=== PATIENT | female | born 1930 | race Caucasian/White ===

== ENCOUNTER 2016-12-21 06:44 | Inpatient (IN) | payer MEDICARE ==
[2016-12-21] MEDS ORDERED: ONDANSETRON HCL INJ/PF 4 MG/2 ML SDV IV ONE (07:18)
[2016-12-21] MEDS ORDERED: FENTANYL CITRATE INJ/PF 100 MCG/2 ML AMPUL IV ONE ×5 (07:18→16:32)
[2016-12-21] MEDS ORDERED: NORMAL SALINE 1000 ML 1,000 ML IV ONE (07:19)
--- NOTE | 2016-12-21 07:36 | ER Document Report ---
ED Fall - General Mode of Arrival: Medic Information source: Patient, Emergency Med Personnel TRAVEL OUTSIDE OF THE [place] IN LAST 30 DAYS: No - HPI Patient complains to provider of: Injury from Fall Occurred: This morning - [id number] Where: Group Home Context: Fell from standing Associated symptoms: denies: Lost consciousness Location of injury/pain: Back - Left lower, Hip - Left, Lower extremity - Left knee <REYES HURTADO - Last Filed: 12/21/16 07:42> <OSCAR HOOKS - Last Filed: 12/21/16 15:15> - General Chief Complaint: Fall Injury Stated Complaint: FALL,HIP/KNEE PAIN Notes: Patient is an 86-year-old female presenting to the emergency department via EMS from [facility] after falling sometime between [id number] last night. Per EMS, Patient was last seen at 0400, and states that she fell while closing the door to her room. Patient states that she was calling for help, but was not found until approximately 0600. Patient complains of pain to her left hip, lower back, and knee. Patient denies any loss of consciousness, but states that she may have hit her head on the wall or door. Patient also states , "I was calling for my mother who told me to 'hush, hush, hush, hush, it only makes it worser.'" According to patient's nurse, the patient vomited upon entering the bed in the emergency department. (REYES HURTADO) - Related data Allergies/Adverse Reactions: No Known Allergies Allergy (Unverified 12/24/15 14:48) Home Medications: Current Home Medications Acetaminophen [Tylenol 325 mg Tablet] 650 mg PO Q4HP PRN 12/21/16 [History] Aspirin/Dipyridamole [Aggrenox 25 mg-200 mg Capsule] 1 cap PO BID 12/21/16 [ History] Atorvastatin Calcium [Lipitor 80 mg Tablet] 80 mg PO DAILY 12/21/16 [History] Clonazepam [Klonopin] 0.5 mg PO BID 12/21/16 [History] Donepezil HCl [Aricept] 10 mg PO QHS 12/21/16 [History] Estrogens,Conjugated [Premarin Vaginal Cream (0.625 mg/gm) 30 gm] 1 gm VG DAILY 12/21/16 [History] Guaifenesin [Robitussin Syrup 200 mg/10 ml Ud Cup] 10 ml PO Q4HP PRN 12/21/16 [ History] Loperamide HCl [Imodium A-D] 2 mg PO PRN PRN 12/21/16 [History] Losartan Potassium [Cozaar 25 mg Tablet] 25 mg PO DAILY 12/21/16 [History] Memantine HCl [Namenda Xr] 28 mg PO DAILY 12/21/16 [History] Methyl Salicylate/Menth/Camph [Salonpas Patch] 2 patch TOP Q8 12/21/16 [History] Pregabalin [Lyrica 100 mg Capsule] 100 mg PO TID 12/21/16 [History] Past Medical History - General Information source: Patient, [facility] Records, Outside Facility Records - Social History Smoking Status: Never Smoker Frequency of alcohol use: None Drug Abuse: None Lives with: [facility] Family History: Reviewed & Not Pertinent Neurological Medical History: Reports: Hx Cerebrovascular Accident Endocrine Medical History: Reports: Hx Diabetes Mellitus Type 2 Musculoskeltal Medical History: Reports Hx Arthritis Past Surgical History: Reports: Hx Orthopedic Surgery - Cervical and lumbar surgery - Immunizations Immunizations up to date: Yes Hx Diphtheria, Pertussis, Tetanus Vaccination: Yes Hx Pneumococcal Vaccination: 04/23/14 <REYES HURTADO - Last Filed: 12/21/16 07:42> Review of Systems - Review of Systems Constitutional: No symptoms reported EENT: No symptoms reported Cardiovascular: No symptoms reported Respiratory: No symptoms reported Gastrointestinal: See HPI, Vomiting Genitourinary: No symptoms reported Female Genitourinary: No symptoms reported Musculoskeletal: See HPI, Other - Left lower back, hip, knee pain Skin: No symptoms reported Hematologic/Lymphatic: No symptoms reported Neurological/Psychological: No symptoms reported -: Yes All other systems reviewed and negative <REYES HURTADO - Last Filed: 12/21/16 07:42> Physical Exam - Vital signs Interpretation: Normal - General General appearance: Alert - HEENT Head: Normocephalic, Atraumatic Eyes: Normal Pupils: PERRL - Respiratory Respiratory status: No respiratory distress Chest status: Nontender Breath sounds: Normal Chest palpation: Normal - Cardiovascular Rhythm: Regular Heart sounds: Normal auscultation Murmur: No - Abdominal Inspection: Normal - Soft Distension: No distension Tenderness: Nontender - Back Back: Tender - Left lower backer up to palpation - Extremities General upper extremity: Normal inspection, Nontender General lower extremity: Other - Left leg shortened and externally rotated Hip: Tender - Left Knee: Tender - Left knee medial tenderness Calf: Other - Older, but recent skin tear to the anterior lower leg. - Neurological Neuro grossly intact: Yes Cognition: Other - Mild dementia Orientation: AAOx4 [place] Coma Scale Eye Opening: Spontaneous [place] Coma Scale Verbal: Oriented [place] Coma Scale Motor: Obeys Commands [place] Coma Scale Total: 15 Speech: Normal - Psychological Associated symptoms: Normal affect, Normal mood - Skin Skin Temperature: Warm Skin Moisture: Dry Skin Color: Other - See extremity exam <REYES HURTADO - Last Filed: 12/21/16 07:42> Course - Laboratory Result Diagrams: 12/21/16 07:45 12/21/16 07:45 - Diagnostic Test Radiology reviewed: Reports reviewed - Comminuted fracture left hip involving the lesser and greater trochanters. CT of the head shows a mass, I think I saw that same abnormality on MRI of the brain last year - EKG Interpretation by Ut EKG shows normal: Sinus rhythm, [place]. abnormal: Intervals - Borderline prolonged QT interval, QRS Complexes - Borderline R progression in anterior leads, ST-T Waves - Nonspecific T abnormalities in the lateral leads [place]/QRS: Left axis deviation When compared to previous EKG there are: No significant change - Consults Dr. Christensen Time consulted: 10:35 Consulted provider: will see as inpatient <OSCAR HOOKS - Last Filed: 12/21/16 15:15> - Vital Signs Vital signs: Temp Pulse Resp BP Pulse Ox 97.7 F 65 18 147/85 H 94 12/21/16 07:21 12/21/16 07:21 12/21/16 15:01 12/21/16 15:01 12/21/16 15:01 - Laboratory Laboratory results interpreted by me: 12/21/16 12/21/16 07:45 07:45 RBC 3.32 L Hgb 10.5 L Hct 31.5 L RDW 14.2 H Plt Count 138 L Sodium 146.6 H Chloride 111 H Est GFR (Non-Af Amer) 55 L Glucose 130 H Discharge <REYES HURTADO - Last Filed: 12/21/16 07:42> - Discharge Admitting Provider: [facility] Unit Admitted: Surgical Floor <OSCAR HOOKS - Last Filed: 12/21/16 15:15> - Discharge Clinical Impression: Hematuria Closed left hip fracture Qualifiers: Encounter type: initial encounter Qualified Code(s): S72.002A - Fracture of unspecified part of neck of left femur, initial encounter for closed fracture Dementia Qualifiers: Dementia type: unspecified type Dementia behavioral disturbance: without behavioral disturbance Qualified Code(s): F03.90 - Unspecified dementia without behavioral disturbance Condition: Stable Disposition: ADMITTED INPATIENT Scribe Attestation: 12/21/16 13:09 I personally performed the services described in the documentation, reviewed and edited the documentation which was dictated to the scribe in my presence, and it accurately records my words and actions. (OSCAR HOOKS) Scribe Documentation - Scribe Written by Scribe:: Reyes Hurtado 12/21/2016 0731 acting as scribe for :: Radha <REYES HURTADO - Last Filed: 12/21/16 07:42>
[2016-12-21 07:53] LABS: ABSOLUTE EOSINOPHILS # (AUTO) 0.3 10^3/uL (0.0-0.6); ABSOLUTE LYMPHOCYTES (AUTO) 1.8 10^3/uL (0.5-4.7); ABSOLUTE MONOCYTES (AUTO) 0.6 10^3/uL (0.1-1.4); BASOPHILS % (AUTO) 0.6 % (0-2); EOSINOPHILS % (AUTO) 4.5 % (0-6); HEMATOCRIT 31.5 % (36.0-47.0); HEMOGLOBIN 10.5 g/dL (12.0-15.5); LYMPHOCYTES % (AUTO) 26.2 % (13-45); MEAN CORPUSCULAR HEMOGLOBIN 31.6 pg (27.0-33.4); MEAN CORPUSCULAR HGB CONC 33.3 g/dL (32.0-36.0); MEAN CORPUSCULAR VOLUME 95 fl (80-97); MONOCYTES % (AUTO) 9.4 % (3-13); RED BLOOD COUNT 3.32 10^6/uL (3.72-5.28); RED CELL DISTRIBUTION WIDTH 14.2 % (11.5-14.0); SEGMENTED NEUTROPHILS % (AUTO) 59.3 % (42-78); WHITE BLOOD COUNT 6.7 10^3/uL (4.0-10.5)
--- NOTE | 2016-12-21 08:09 | EKG REPORT ---
SEVERITY:- ABNORMAL ECG - SINUS RHYTHM LEFT AXIS DEVIATION BORDERLINE R WAVE PROGRESSION, ANTERIOR LEADS NONSPECIFIC T ABNORMALITIES, LATERAL LEADS BORDERLINE PROLONGED QT INTERVAL : Confirmed by: Riki Allan MD 21-Dec-2016 08:08:54
[2016-12-21 08:17] LABS: ALANINE AMINOTRANSFERASE 43 U/L (9-52); ALBUMIN 3.7 g/dL (3.5-5.0); ALKALINE PHOSPHATASE 96 U/L (38-126); ANION GAP 10 (5-19); ASPARTATE AMINO TRANSFERASE 26 U/L (14-36); BILIRUBIN,DIRECT 0.3 mg/dL (0.0-0.4); BILIRUBIN,TOTAL 0.6 mg/dL (0.2-1.3); BLOOD UREA NITROGEN 19 mg/dL (7-20); CALCIUM 8.8 mg/dL (8.4-10.2); CARBON DIOXIDE 26 mmol/L (22-30); CHLORIDE 111 mmol/L (98-107); CREATINE KINASE 90 U/L (30-135); CREATININE RESULT 0.96 mg/dL (0.52-1.25); GLUCOSE 130 mg/dL (75-110); MAGNESIUM 1.9 mg/dL (1.6-2.3); POTASSIUM 4.2 mmol/L (3.6-5.0); SODIUM 146.6 mmol/L (137-145); TOTAL PROTEIN 6.9 g/dL (6.3-8.2)
[2016-12-21 08:29] LABS: CREATINE KINASE MB 0.95 ng/mL (<4.55)
[2016-12-21 08:34] LABS: TROPONIN I < 0.012 ng/mL
[2016-12-21 12:36] LABS: APPEARANCE,URINE SLIGHTLY-CLOUDY; BILIRUBIN,URINE NEGATIVE (NEGATIVE); GLUCOSE, URINE NEGATIVE (NEGATIVE); KETONES,URINE TRACE mg/dL (NEGATIVE); LEUKOCYTE ESTERASE,URINE NEGATIVE (NEGATIVE); NITRITE,URINE NEGATIVE (NEGATIVE); PROTEIN,URINE 100 mg/dL (NEGATIVE); URINE SPECIFIC GRAVITY 1.013; UROBILINOGEN,URINE NEGATIVE mg/dL (<2.0)
--- NOTE | 2016-12-21 17:29 | PDOC CONSULTATION ---
History of Present Illness Admission Date/PCP: 12/21/16 10:54 PATRICIA BOGGS MD History of Present Illness: VICTOR HUGO WHATLEY is a 86 year old female non-ambulatory halfway patient apparently sustained a fall earlier today when she attempted to ambulate. At that point she began having notable pain in her left hip. According to her family she has had frequent falls in the past but not complaining of pain until this morning. Pain is worse with motion. Patient denies numbness or tingling. Denies headache dizziness or loss of consciousness. Pain 10/10 with movement. Past Medical History Endocrine Medical History: Reports: Diabetes Mellitus Type 2 Musculoskeltal Medical History: Reports: Arthritis Past Surgical History Past Surgical History: Reports: Orthopedic Surgery - Cervical and lumbar surgery Social History Lives with: Long Term - [facility] Smoking Status: Never Smoker Frequency of Alcohol Use: None Hx Recreational Drug Use: No Drugs: None Hx Prescription Drug Abuse: No Family History Family History: Reviewed & Not Pertinent Parental Family History Reviewed: No Children Family History Reviewed: No Sibling(s) Family History Reviewed.: No Medication/Allergy Home Medications: Acetaminophen [Tylenol 325 mg Tablet] 650 mg PO Q4HP PRN 12/21/16 Aspirin/Dipyridamole [Aggrenox 25 mg-200 mg Capsule] 1 cap PO BID 12/21/16 Atorvastatin Calcium [Lipitor 80 mg Tablet] 80 mg PO DAILY 12/21/16 Clonazepam [Klonopin] 0.5 mg PO BID 12/21/16 Donepezil HCl [Aricept] 10 mg PO QHS 12/21/16 Estrogens,Conjugated [Premarin Vaginal Cream (0.625 mg/gm) 30 gm] 1 gm VG DAILY 12/21/16 Guaifenesin [Robitussin Syrup 200 mg/10 ml Ud Cup] 10 ml PO Q4HP PRN 12/21/16 Loperamide HCl [Imodium A-D] 2 mg PO PRN PRN 12/21/16 Losartan Potassium [Cozaar 25 mg Tablet] 25 mg PO DAILY 12/21/16 Memantine HCl [Namenda Xr] 28 mg PO DAILY 12/21/16 Methyl Salicylate/Menth/Camph [Salonpas Patch] 2 patch TOP Q8 12/21/16 Pregabalin [Lyrica 100 mg Capsule] 100 mg PO TID 12/21/16 Allergies/Adverse Reactions: No Known Allergies Allergy (Unverified 12/24/15 14:48) Review of Systems ROS unobtainable: Due to mental status Physical Exam Vital Signs: Temp Pulse Resp BP Pulse Ox 97.7 F 65 12 168/90 H 98 12/21/16 07:21 12/21/16 07:21 12/21/16 17:01 12/21/16 17:01 12/21/16 17:01 General appearance: PRESENT: mild distress Head exam: PRESENT: atraumatic Eye exam: PRESENT: conjunctiva pale, EOMI Ear exam: PRESENT: normal external ear exam Mouth exam: PRESENT: dry mucosa Neck exam: PRESENT: full ROM. ABSENT: carotid bruit, JVD, lymphadenopathy, thyromegaly Respiratory exam: PRESENT: unlabored Pulses: PRESENT: +1 pedal pulses bilateral Vascular exam: PRESENT: normal capillary refill GI/Abdominal exam: PRESENT: normal bowel sounds, soft Rectal exam: PRESENT: deferred Musculoskeletal exam: PRESENT: other - Left lower extremity: Shortened, externally rotated with positive logroll. Intact plantar flexion/dorsiflexion. Cap refill less than 2 seconds. No sensory deficits. Small 1 cm abrasion along the anterior aspect of the tibia without erythema. Notable pain with attempted range of motion of the hip. Neurological exam: PRESENT: altered, awake, oriented to person, other - Limited exam secondary to patient's mental status Psychiatric exam: PRESENT: flat affect Results Laboratory Results: 12/21/16 11:46 Urine Color YELLOW Urine Appearance SLIGHTLY-CLOUDY Urine pH 5.0 Ur Specific [place] 1.013 Urine Protein 100 H Urine Glucose (UA) NEGATIVE Urine Ketones TRACE H Urine Blood LARGE H Urine Nitrite NEGATIVE Ur Leukocyte Esterase NEGATIVE Urine WBC (Auto) 11 Urine RBC (Auto) 145 Impressions: Femur X-Ray 12/21/16 07:21 IMPRESSION: Comminuted fracture of the proximal left femur as noted above Lumbar Spine X-Ray 12/21/16 07:22 IMPRESSION: SPONDYLOSIS WITHOUT BONE LESION OR FRACTURE. Head CT 12/21/16 09:09 IMPRESSION: Question 1 cm mass left cerebellar hemisphere. No acute hemorrhage. Atrophy and marked microvascular ischemic change. Pelvis CT 12/21/16 10:35 IMPRESSION: Acute comminuted intertrochanteric left proximal femoral fracture. Status: Image reviewed by me - I have reviewed patient's radiographs and CT scan which demonstrate comminuted inter-trochanteric hip fracture. Assessment & Plan - Diagnosis (1) Fracture, intertrochanteric, left femur Qualifiers: Encounter type: initial encounter Fracture type: closed Qualified Code(s): S72.142A - Displaced intertrochanteric fracture of left femur , initial encounter for closed fracture Is this a current diagnosis for this admission?: YesPlan: I have reviewed patient's radiographs which demonstrate comminuted intratrochanteric fracture there is some portions of the fracture which may indicate chronicity but given the patient's history and having no discomfort prior to the most recent event I feel the majority of it is acute in nature. Today we discussed treatment options including observation which is reasonable given patient's not ambulatory demented status versus operative fixation for pain control. I have discussed risks and benefits of both including patient's increased anesthesia risks given her age along with the fact she is not ambulating that nonoperative treatment is certainly reasonable but operative treatment is somewhat prophylactic for pain control but will not completely resolve all patient's discomfort. After discussing risks and benefits of both operative and nonoperative intervention the family has verbalized understanding and will make final decision in the next 24 hours. In the meantime I will set the patient up for operative intervention with plans to proceed with cephalo- medullary nail.
[2016-12-21] MEDS: HYDROMORPHONE HCL INJ/PF 2 MG/ML AMPULE IV PRN (18:42)
[2016-12-21] MEDS ORDERED: ENOXAPARIN SODIUM INJ 40 MG/0.4 ML DISP.SYRIN SUBCUT ONE (19:00)
[2016-12-21 19:18] LABS: PARTIAL THROMBOPLASTIN TIME 29.3 SEC (23.5-35.8); PROTHROMBIN TIME 13.3 SEC (11.4-15.4)
[2016-12-21 19:23] LABS: LIPASE 53.3 U/L (23-300); MAGNESIUM 1.8 mg/dL (1.6-2.3); PHOSPHORUS 3.4 mg/dL (2.5-4.5)
[2016-12-21 19:47] LABS: CREATINE KINASE MB 1.2 ng/mL (<4.55); TROPONIN I 0.013 ng/mL
--- NOTE | 2016-12-21 19:54 | PDOC H&P ---
History of Present Illness Admission Date/PCP: 12/21/16 10:54 PATRICIA BOGGS MD History of Present Illness: Patient 86-year-old female with dementia, advanced, she is non-ambulatory, she is wheelchair-bound, resident of assisted living facility in [place] she fell earlier today while she was trying to ambulate, she came to the emergency room for evaluation because of pain x-ray was done he showed a comminuted fracture involving the proximal left femoral at the level of the greater and lesser trochanter with associated angulation. The family is contemplating between operative versus nonoperative option I suggested to them that she is better off to pursue operative option at least for pain control. Based on the revised cardiac risk index score, she has a history of CVA, she has no history of congestive heart failure, she has no history of coronary artery disease, she has no history of chronic kidney disease with serum creatinine more than 2, she has no history of insulin requiring diabetes mellitus and the anticipated procedure is intermediate risk based on the revised cardiac risk index score she is relative low risk for cardiac events in the perioperative. Orthopedic surgeon can proceed no further workup is warranted or indicated. Past Medical History Cardiac Medical History: Reports: Hypertension Neurological Medical History: Reports: Ischemic CVA Endocrine Medical History: Reports: Diabetes Mellitus Type 2 Musculoskeltal Medical History: Reports: Arthritis Psychiatric Medical History: Reports: Dementia Past Surgical History Past Surgical History: Reports: Orthopedic Surgery - Cervical and lumbar surgery Social History Lives with: Longterm - [facility] Smoking Status: Never Smoker Frequency of Alcohol Use: None Hx Recreational Drug Use: No Drugs: None Hx Prescription Drug Abuse: No Family History Family History: Reviewed & Not Pertinent Parental Family History Reviewed: Yes Children Family History Reviewed: Yes Sibling(s) Family History Reviewed.: Yes Medication/Allergy Home Medications: Acetaminophen [Tylenol 325 mg Tablet] 650 mg PO Q4HP PRN 12/21/16 Aspirin/Dipyridamole [Aggrenox 25 mg-200 mg Capsule] 1 cap PO BID 12/21/16 Atorvastatin Calcium [Lipitor 80 mg Tablet] 80 mg PO DAILY 12/21/16 Clonazepam [Klonopin] 0.5 mg PO BID 12/21/16 Donepezil HCl [Aricept] 10 mg PO QHS 12/21/16 Estrogens,Conjugated [Premarin Vaginal Cream (0.625 mg/gm) 30 gm] 1 gm VG DAILY 12/21/16 Guaifenesin [Robitussin Syrup 200 mg/10 ml Ud Cup] 10 ml PO Q4HP PRN 12/21/16 Loperamide HCl [Imodium A-D] 2 mg PO PRN PRN 12/21/16 Losartan Potassium [Cozaar 25 mg Tablet] 25 mg PO DAILY 12/21/16 Memantine HCl [Namenda Xr] 28 mg PO DAILY 12/21/16 Methyl Salicylate/Menth/Camph [Salonpas Patch] 2 patch TOP Q8 12/21/16 Pregabalin [Lyrica 100 mg Capsule] 100 mg PO TID 12/21/16 Allergies/Adverse Reactions: No Known Allergies Allergy (Unverified 12/24/15 14:48) Review of Systems Constitutional: ABSENT: chills, fever(s), headache(s), weight gain, weight loss Eyes: ABSENT: visual disturbances Ears: ABSENT: hearing changes Cardiovascular: ABSENT: chest pain, dyspnea on exertion, edema, orthropnea, palpitations Respiratory: ABSENT: cough, hemoptysis Gastrointestinal: ABSENT: abdominal pain, constipation, diarrhea, hematemesis, hematochezia, nausea, vomiting Genitourinary: ABSENT: dysuria, hematuria Musculoskeletal: PRESENT: back pain, deformity, joint swelling, muscle weakness Integumentary: ABSENT: rash, wounds Neurological: ABSENT: abnormal gait, abnormal speech, confusion, dizziness, focal weakness, syncope Psychiatric: ABSENT: anxiety, depression, homidical ideation, suicidal ideation Endocrine: ABSENT: cold intolerance, heat intolerance, menstrual abnormalities, polydipsia, polyuria Hematologic/Lymphatic: ABSENT: easy bleeding, easy bruising, lymphadenopathy Physical Exam Vital Signs: Temp Pulse Resp BP Pulse Ox 98 F 87 20 169/49 H 96 12/21/16 18:12 12/21/16 18:12 12/21/16 18:12 12/21/16 18:12 12/21/16 18:12 Intake & Output 12/20/16 12/21/16 12/22/16 06:59 06:59 06:59 Weight 71.7 kg General appearance: PRESENT: mild distress Head exam: PRESENT: atraumatic, normocephalic Eye exam: PRESENT: conjunctiva pink, EOMI, PERRLA Ear exam: PRESENT: normal external ear exam Neck exam: PRESENT: full ROM Respiratory exam: PRESENT: clear to auscultation [place] Cardiovascular exam: PRESENT: RRR, +S1, +S2 Vascular exam: PRESENT: normal capillary refill GI/Abdominal exam: PRESENT: normal bowel sounds, soft Rectal exam: PRESENT: deferred Neurological exam: PRESENT: alert, CN II-XII grossly intact. ABSENT: motor sensory deficit Results Laboratory Results: 12/21/16 12/21/16 12/21/16 11:46 18:35 18:35 Phosphorus 3.4 Magnesium 1.8 Ammonia < 8.7 L Amylase 47 Lipase 53.3 Urine Color YELLOW Urine Appearance SLIGHTLY-CLOUDY Urine pH 5.0 Ur Specific [place] 1.013 Urine Protein 100 H Urine Glucose (UA) NEGATIVE Urine Ketones TRACE H Urine Blood LARGE H Urine Nitrite NEGATIVE Ur Leukocyte Esterase NEGATIVE Urine WBC (Auto) 11 Urine RBC (Auto) 145 12/21/16 12/21/16 18:35 18:35 Creatine Kinase 134 NT-Pro-B Natriuret Pep 1670 H Impressions: Femur X-Ray 12/21/16 07:21 IMPRESSION: Comminuted fracture of the proximal left femur as noted above Lumbar Spine X-Ray 12/21/16 07:22 IMPRESSION: SPONDYLOSIS WITHOUT BONE LESION OR FRACTURE. Head CT 12/21/16 09:09 IMPRESSION: Question 1 cm mass left cerebellar hemisphere. No acute hemorrhage. Atrophy and marked microvascular ischemic change. Pelvis CT 12/21/16 10:35 IMPRESSION: Acute comminuted intertrochanteric left proximal femoral fracture. Assessment & Plan - Diagnosis (1) Fracture, intertrochanteric, left femur Qualifiers: Encounter type: initial encounter Fracture type: closed Qualified Code(s): S72.142A - Displaced intertrochanteric fracture of left femur , initial encounter for closed fracture Is this a current diagnosis for this admission?: YesPlan: Patient was seen by orthopedic, hopefully she will proceed to surgery as soon as family gives a greenlight. (2) Closed left hip fracture Qualifiers: Encounter type: initial encounter Qualified Code(s): S72.002A - Fracture of unspecified part of neck of left femur, initial encounter for closed fracture Is this a current diagnosis for this admission?: Yes (3) Dementia Qualifiers: Dementia type: unspecified type Dementia behavioral disturbance: without behavioral disturbance Qualified Code(s): F03.90 - Unspecified dementia without behavioral disturbance Is this a current diagnosis for this admission?: Yes (4) Spinal stenosis of lumbar region at multiple levels Is this a current diagnosis for this admission?: Yes (5) Personal history of stroke with current residual effects Is this a current diagnosis for this admission?: Yes (6) Preprocedural cardiovascular examination Is this a current diagnosis for this admission?: YesPlan: Based on the revised cardiac risk index score, she has one point because of history of CVA, this indicates that she has a low cardiovascular event in the perioperative., She can proceed to surgery.
[2016-12-21 20:01] LABS: THYROID STIMULATING HORMONE 2.32 uIU/mL (0.47-4.68)
[2016-12-22 01:03] LABS: CREATINE KINASE MB 0.97 ng/mL (<4.55); TROPONIN I 0.015 ng/mL
[2016-12-22] MEDS: HYDROMORPHONE HCL INJ/PF 2 MG/ML AMPULE IV PRN ×3 (01:37→23:00)
[2016-12-22 02:54] LABS: APPEARANCE,URINE SLIGHTLY-CLOUDY; BILIRUBIN,URINE NEGATIVE (NEGATIVE); GLUCOSE, URINE 50 mg/dL (NEGATIVE); KETONES,URINE NEGATIVE (NEGATIVE); LEUKOCYTE ESTERASE,URINE NEGATIVE (NEGATIVE); NITRITE,URINE NEGATIVE (NEGATIVE); PROTEIN,URINE 30 mg/dL (NEGATIVE); URINE SPECIFIC GRAVITY 1.019; UROBILINOGEN,URINE NEGATIVE mg/dL (<2.0)
[2016-12-22 03:07] LABS: URINE BARBITURATES SCREEN NEGATIVE; URINE METHADONE SCREEN NEGATIVE; URINE PHENCYCLIDINE SCREEN NEGATIVE
[2016-12-22 03:15] LABS: URINE OPIATES LOW UNCONFIRMED POSITIVE
[2016-12-22 06:39] LABS: ABSOLUTE EOSINOPHILS # (AUTO) 0.1 10^3/uL (0.0-0.6); ABSOLUTE LYMPHOCYTES (AUTO) 1.5 10^3/uL (0.5-4.7); ABSOLUTE MONOCYTES (AUTO) 0.8 10^3/uL (0.1-1.4); ABSOLUTE NEUT (AUTO) 2.8 10^3/uL (1.7-8.2); BASOPHILS % (AUTO) 0.5 % (0-2); EOSINOPHILS % (AUTO) 2.4 % (0-6); HEMATOCRIT 25.2 % (36.0-47.0); HGB HCT DIFFERENCE -0.3; LYMPHOCYTES % (AUTO) 28.5 % (13-45); MEAN CORPUSCULAR HEMOGLOBIN 31.5 pg (27.0-33.4); MEAN CORPUSCULAR HGB CONC 33.1 g/dL (32.0-36.0); MEAN CORPUSCULAR VOLUME 95 fl (80-97); MONOCYTES % (AUTO) 15.5 % (3-13); RED BLOOD COUNT 2.65 10^6/uL (3.72-5.28); SEGMENTED NEUTROPHILS % (AUTO) 53.1 % (42-78); WHITE BLOOD COUNT 5.3 10^3/uL (4.0-10.5)
[2016-12-22 06:43] LABS: HEMOGLOBIN 8.3 g/dL (12.0-15.5)
[2016-12-22 06:58] LABS: ALANINE AMINOTRANSFERASE 34 U/L (9-52); ALKALINE PHOSPHATASE 70 U/L (38-126); ANION GAP 9 (5-19); ASPARTATE AMINO TRANSFERASE 22 U/L (14-36); BILIRUBIN,DIRECT 0.1 mg/dL (0.0-0.4); BILIRUBIN,TOTAL 0.5 mg/dL (0.2-1.3); BLOOD UREA NITROGEN 13 mg/dL (7-20); CARBON DIOXIDE 24 mmol/L (22-30); CHLORIDE 110 mmol/L (98-107); CHOLESTEROL 119.26 mg/dL (0-200); CREATINE KINASE 127 U/L (30-135); Direct HDL 55 mg/dL (>40); GLUCOSE 136 mg/dL (75-110); POTASSIUM 4.2 mmol/L (3.6-5.0); SODIUM 143.2 mmol/L (137-145); TOTAL PROTEIN 5.7 g/dL (6.3-8.2); TRIGLYCERIDES 82 mg/dL (<150)
[2016-12-22 07:09] LABS: CREATINE KINASE MB 0.75 ng/mL (<4.55); DIRECT LDL 42 mg/dL (<100); TROPONIN I < 0.012 ng/mL
[2016-12-22] MEDS: ENOXAPARIN SODIUM INJ 40 MG/0.4 ML DISP.SYRIN SUBCUT SCH (07:40)
[2016-12-22] MEDS ORDERED: NORMAL SALINE 250 ML IV PRN (07:55)
[2016-12-22] MEDS ORDERED: PHENYLEPHRINE HCL INJ/PF 10 MG/1 ML SDV ONE (08:02)
[2016-12-22] MEDS: DEXTROSE 5%-NORMAL SALINE 1,000 ML IV PRN ×2 (08:12→23:04)
[2016-12-22] MEDS ORDERED: CEFAZOLIN INJ 1 GM VIAL ONE (14:43)
--- NOTE | 2016-12-22 15:15 | Progress Note ---
Provider Note Provider Note: After discussing and considering treatment options patient's family has elected to proceed with operative intervention and understands this is mainly for palliative pain control and expectations of ambulation are unlikely given patient's nonambulatory status. Patient received 2 units packed red blood cells prophylactically given her decreased hemoglobin today. Risks and benefits of the surgical procedure have been explained to the family risks anesthetic complications, excessive bleeding, infection, injury to surrounding nerves, vessels and tendons, bruising, healing difficulties, scar formation, posttraumatic arthritis and any unforseen complication.
[2016-12-22] MEDS ORDERED: FENTANYL CITRATE INJ/PF 100 MCG/2 ML AMPUL ONE (15:35)
[2016-12-22] MEDS ORDERED: MIDAZOLAM 2 MG/2 ML INJ ONE (15:35)
[2016-12-22] MEDS ORDERED: PROPOFOL INJ 200 MG/20 ML VIAL IV ONE (15:35)
[2016-12-22] MEDS ORDERED: ACETAMINOPHEN 100 ML IV ONE (15:36)
--- NOTE | 2016-12-22 18:05 | Operative Report ---
Operative Report DATE OF SURGERY: 12/22/16 PREOPERATIVE DIAGNOSIS: Left Intertrochanteric Hip Fracture POSTOPERATIVE DIAGNOSIS: Same OPERATION: Left Cephalomedullary Nail Intertrochanteric Fracture SURGEON: EVY LOYOLA ANESTHESIA: Spinal COMPLICATIONS: None ESTIMATED BLOOD LOSS: 200cc PROCEDURE: Indication for above procedure: 86-year-old female with history of dementia who lives at a nursing facility and sustained an unwitnessed fall onto her left hip. Patient was brought to the emergency room where x-rays demonstrated comminuted peritrochanteric fracture. Treatment options were explained to the family including operative versus nonoperative intervention. We discussed risks and benefits of each after careful consideration the family decided to proceed with operative treatment. Patient was seen and evaluated in the preoperative holding area. The right lower extremity was initialized and marked. Patient received 2 g Ancef IV for bacterial prophylaxis. Patient was taken back to the operative room where transferred operative table. Patient was placed under spinal anesthesia. Once adequate anesthetized he was carefully placed onto the hip positioner the nonoperative lower extremity and bilateral upper extremities were carefully padded and the peroneal nerve was padded and on the nonoperative extremity. The operative extremity was placed in a traction along with adduction and internal rotation. A surgical team debriefing was performed ensuring all instrumentation was available, the surgical procedure was discussed with possible concerns reviewed. A timeout was done identifying correct patient, procedure and extremity everyone in attendance agree with this and verbalized no concerns. Reduction maneuver with the use of the hip traction table were done and C-arm fluoroscopy was used to confirm optimal reduction of the intertrochanteric fracture. Once this was confirmed the lower extremity was prepped with chlor prep and draped in a sterile fashion. At this point a small skin incision was made proximal to the greater trochanter. The guidewire was placed onto the tip of the trochanter advanced down to the level of the lesser trochanter. AP and lateral fluoroscopy was used to confirm appropriate placement of the guidewire. The skin incision was then extended and the underlying fascia opened up carefully to the tip of the greater trochanter. The entry reamer was then used and advanced to the level of the lesser trochanter. Utilized a #1 to reduce the femoral neck. At this point Ramona short gamma nail was opened up unfortunately this became contaminated and a 130 degrees short nail was opened. The aiming arm attached and the nail advanced down the shaft of the femur. AP and lateral fluoroscopy was then used to confirm appropriate placement of the nail. Then turned my attention to the compression screw fixation in the femoral head. The trochars were advanced to the skin, a skin incision was made, careful dissection down to the fascia to the lateral femoral cortex was then partaken. The guidewire was then advanced but was unable to be placed in the appropriate position given the angle of the nail and comminuted fracture. Thus the decision was made to sterilize the previously contaminated titanium implant which was a 11 x 180 mm 125 short Gamma nail. Once sterilization process was complete the 125 gamma nail was passed into the femur. Acceptable reduction of the intertrochanteric fracture was confirmed with C-arm fluoroscopy. I then once again passed the trochars to the lateral aspect of the femur and the guidewire was placed. Attempts were made to obtain center center position but given patient's comminution and angle of the fracture perfect center center position was not obtainable. Once I was satisfied with the appropriate placement of the guidepin I measured the appropriate size compression screw. AP and lateral fluoroscopy used to confirm appropriate placement of our guide wire. The step reamer was used to drill up through the femoral neck and head. I then carefully advanced the compression screw into position. AP and lateral fluoroscopy was done to confirm appropriate placement of the compression screw this was then locked into position proximally. The compression screw was then disengaged from its mounting device and the guidewire was removed. Lastly proceeded with locking of the nail distally. Using the aiming arm the trochars were advanced to the skin, a skin incision was made. Careful dissection done with a hemostat to the lateral cortex of the femur. I then drilled the near and far cortices. Measured the appropriate sized distal locking screw and secured it into position. At this point AP/lateral and oblique views of the proximal and distal aspect of the nail were taken confirming appropriate placement of the compression screw, distal locking screw and intramedullary nail. Once this was confirmed I proceeded with copious irrigation of the proximal and distal wounds. The deep tissues were closed with 0 Vicryl suture, subcutaneous tissues were closed with 3-0 Monocryl suture. The skin was closed a running 3-0 subcuticular Monocryl suture and reinforced with Dermabond & Steri-Strips. A dressing was placed. Sponge counts, instrument counts and needle counts were correct. Patient was then transferred from the operating room table to the operating room stretcher. The was no intraoperative complications patient tolerated procedure well was stable to PACU. Implants used: Ramona 11 x 180 mm 125 Short Gamma Nail with a 95 mm compression screw Postoperative plan: Patient will transfers only given her nonambulatory status. We will begin heparin for DVT prophylaxis.
[2016-12-22] MEDS ORDERED: ALBUTEROL SULFATE 0.083% NEB 2.5 MG/3 ML AMPUL NEB ONE (18:25)
--- NOTE | 2016-12-22 20:40 | PDOC PROGRESS REPORT ---
Subjective Progress Note for:: 12/29/16 Subjective:: She had operative correction of the fracture today, there is no new complaint she will require shelter for rehabilitation Physical Exam Vital Signs: Temp Pulse Resp BP Pulse Ox 97.7 F 79 14 116/48 L 99 12/22/16 19:02 12/22/16 19:02 12/22/16 19:02 12/22/16 19:02 12/22/16 19:02 Intake & Output 12/21/16 12/22/16 12/23/16 06:59 06:59 06:59 Intake Total 6865 Output Total 600 450 Balance -600 6415 Weight 71.1 kg General appearance: PRESENT: no acute distress Eye exam: PRESENT: PERRLA Cardiovascular exam: PRESENT: +S1, +S2 GI/Abdominal exam: PRESENT: soft Neurological exam: PRESENT: alert Results Laboratory Results: 12/22/16 06:10 12/22/16 06:10 12/22/16 12/22/16 12/22/16 02:40 06:10 06:10 WBC 5.3 RBC 2.65 L Hgb 8.3 L D Hct 25.2 L MCV 95 MCH 31.5 MCHC 33.1 RDW 14.0 Plt Count 109 L Seg Neutrophils % 53.1 Lymphocytes % 28.5 Monocytes % 15.5 H Eosinophils % 2.4 Basophils % 0.5 Absolute Neutrophils 2.8 Absolute Lymphocytes 1.5 Absolute Monocytes 0.8 Absolute Eosinophils 0.1 Absolute Basophils 0.0 Sodium 143.2 Potassium 4.2 Chloride 110 H Carbon Dioxide 24 Anion Gap 9 BUN 13 Creatinine 0.90 Est GFR ( Amer) > 60 Est GFR (Non-Af Amer) > 60 Glucose 136 H Calcium 8.0 L Total Bilirubin 0.5 AST 22 ALT 34 Alkaline Phosphatase 70 Total Protein 5.7 L Albumin 3.0 L Triglycerides 82 Cholesterol 119.26 LDL Cholesterol Direct 42 VLDL Cholesterol 16.0 HDL Cholesterol 55 Urine Color YELLOW Urine Appearance SLIGHTLY-CLOUDY Urine pH 5.0 Ur Specific [place] 1.019 Urine Protein 30 H Urine Glucose (UA) 50 H Urine Ketones NEGATIVE Urine Blood SMALL H Urine Nitrite NEGATIVE Ur Leukocyte Esterase NEGATIVE Urine WBC (Auto) 17 Urine RBC (Auto) 4 Blood Type Antibody Screen 12/22/16 09:24 WBC RBC Hgb Hct MCV MCH MCHC RDW Plt Count Seg Neutrophils % Lymphocytes % Monocytes % Eosinophils % Basophils % Absolute Neutrophils Absolute Lymphocytes Absolute Monocytes Absolute Eosinophils Absolute Basophils Sodium Potassium Chloride Carbon Dioxide Anion Gap BUN Creatinine Est GFR ( Amer) Est GFR (Non-Af Amer) Glucose Calcium Total Bilirubin AST ALT Alkaline Phosphatase Total Protein Albumin Triglycerides Cholesterol LDL Cholesterol Direct VLDL Cholesterol HDL Cholesterol Urine Color Urine Appearance Urine pH Ur Specific [place] Urine Protein Urine Glucose (UA) Urine Ketones Urine Blood Urine Nitrite Ur Leukocyte Esterase Urine WBC (Auto) Urine RBC (Auto) Blood Type A NEGATIVE Antibody Screen NEGATIVE 12/21/16 12/21/16 12/21/16 18:35 18:35 18:35 Creatine Kinase 134 CK-MB (CK-2) 1.20 Troponin I 0.013 NT-Pro-B Natriuret Pep 1670 H 12/22/16 12/22/16 12/22/16 00:27 00:27 06:10 Creatine Kinase 135 127 CK-MB (CK-2) 0.97 Troponin I 0.015 NT-Pro-B Natriuret Pep 12/22/16 06:10 Creatine Kinase CK-MB (CK-2) 0.75 Troponin I < 0.012 NT-Pro-B Natriuret Pep Impressions: Femur X-Ray 12/21/16 07:21 IMPRESSION: Comminuted fracture of the proximal left femur as noted above Lumbar Spine X-Ray 12/21/16 07:22 IMPRESSION: SPONDYLOSIS WITHOUT BONE LESION OR FRACTURE. Head CT 12/21/16 09:09 IMPRESSION: Question 1 cm mass left cerebellar hemisphere. No acute hemorrhage. Atrophy and marked microvascular ischemic change. Pelvis CT 12/21/16 10:35 IMPRESSION: Acute comminuted intertrochanteric left proximal femoral fracture. Fluoroscopy 12/22/16 00:00 IMPRESSION: Please see combined report for performance of procedure and radiologic supervision and interpretation. Hip X-Ray 12/22/16 00:00 IMPRESSION: IMAGE(S) OBTAINED DURING PROCEDURE. Assessment & Plan - Diagnosis (1) Fracture, intertrochanteric, left femur Qualifiers: Encounter type: initial encounter Fracture type: closed Qualified Code(s): S72.142A - Displaced intertrochanteric fracture of left femur , initial encounter for closed fracture Is this a current diagnosis for this admission?: Yes (2) Closed left hip fracture Qualifiers: Encounter type: initial encounter Qualified Code(s): S72.002A - Fracture of unspecified part of neck of left femur, initial encounter for closed fracture Is this a current diagnosis for this admission?: Yes (3) Dementia Qualifiers: Dementia type: unspecified type Dementia behavioral disturbance: without behavioral disturbance Qualified Code(s): F03.90 - Unspecified dementia without behavioral disturbance Is this a current diagnosis for this admission?: Yes (4) Spinal stenosis of lumbar region at multiple levels Is this a current diagnosis for this admission?: Yes (5) Personal history of stroke with current residual effects Is this a current diagnosis for this admission?: Yes (6) Preprocedural cardiovascular examination Is this a current diagnosis for this admission?: Yes
[2016-12-23] MEDS: HYDROMORPHONE HCL INJ/PF 2 MG/ML AMPULE IV PRN ×4 (05:26→21:40)
[2016-12-23 07:04] LABS: ABSOLUTE EOSINOPHILS # (AUTO) 0.1 10^3/uL (0.0-0.6); ABSOLUTE MONOCYTES (AUTO) 0.8 10^3/uL (0.1-1.4); ABSOLUTE NEUT (AUTO) 4.1 10^3/uL (1.7-8.2); BASOPHILS % (AUTO) 0.5 % (0-2); EOSINOPHILS % (AUTO) 1.5 % (0-6); HEMATOCRIT 29.4 % (36.0-47.0); HEMOGLOBIN 10.1 g/dL (12.0-15.5); HGB HCT DIFFERENCE 0.9; LYMPHOCYTES % (AUTO) 16.7 % (13-45); MEAN CORPUSCULAR HEMOGLOBIN 31.6 pg (27.0-33.4); MEAN CORPUSCULAR HGB CONC 34.4 g/dL (32.0-36.0); MEAN CORPUSCULAR VOLUME 92 fl (80-97); MONOCYTES % (AUTO) 13.2 % (3-13); RED BLOOD COUNT 3.19 10^6/uL (3.72-5.28); RED CELL DISTRIBUTION WIDTH 15.2 % (11.5-14.0); SEGMENTED NEUTROPHILS % (AUTO) 68.1 % (42-78)
[2016-12-23] MEDS: ENOXAPARIN SODIUM INJ 40 MG/0.4 ML DISP.SYRIN SUBCUT SCH (10:48)
--- NOTE | 2016-12-23 16:10 | PDOC PROGRESS REPORT ---
Subjective Progress Note for:: 12/23/16 Subjective:: Patient had surgery yesterday, no new complaint Physical Exam Vital Signs: Temp Pulse Resp BP Pulse Ox 98.7 F 91 16 129/65 H 95 12/23/16 11:36 12/23/16 11:36 12/23/16 11:36 12/23/16 11:36 12/23/16 11:36 Intake & Output 12/22/16 12/23/16 12/24/16 06:59 06:59 06:59 Intake Total 7955 100 Output Total 600 750 230 Balance -600 7205 -130 Weight 71.1 kg 71.1 kg General appearance: PRESENT: no acute distress Eye exam: PRESENT: PERRLA Respiratory exam: PRESENT: clear to auscultation maximo Cardiovascular exam: PRESENT: +S1, +S2 Results Laboratory Results: 12/23/16 06:15 12/22/16 06:10 12/22/16 12/23/16 12/23/16 09:24 05:00 06:15 WBC Cancelled 6.0 RBC Cancelled 3.19 L Hgb Cancelled 10.1 L Hct Cancelled 29.4 L MCV Cancelled 92 MCH Cancelled 31.6 MCHC Cancelled 34.4 RDW Cancelled 15.2 H Plt Count Cancelled 93 L Seg Neutrophils % Cancelled 68.1 Lymphocytes % Cancelled 16.7 Monocytes % Cancelled 13.2 H Eosinophils % Cancelled 1.5 Basophils % Cancelled 0.5 Absolute Neutrophils Cancelled 4.1 Absolute Lymphocytes Cancelled 1.0 Absolute Monocytes Cancelled 0.8 Absolute Eosinophils Cancelled 0.1 Absolute Basophils Cancelled 0.0 Blood Type A NEGATIVE Antibody Screen NEGATIVE 12/21/16 12/21/16 12/21/16 18:35 18:35 18:35 Creatine Kinase 134 CK-MB (CK-2) 1.20 Troponin I 0.013 NT-Pro-B Natriuret Pep 1670 H 12/22/16 12/22/16 12/22/16 00:27 00:27 06:10 Creatine Kinase 135 127 CK-MB (CK-2) 0.97 Troponin I 0.015 NT-Pro-B Natriuret Pep 12/22/16 06:10 Creatine Kinase CK-MB (CK-2) 0.75 Troponin I < 0.012 NT-Pro-B Natriuret Pep Impressions: Femur X-Ray 12/21/16 07:21 IMPRESSION: Comminuted fracture of the proximal left femur as noted above Lumbar Spine X-Ray 12/21/16 07:22 IMPRESSION: SPONDYLOSIS WITHOUT BONE LESION OR FRACTURE. Head CT 12/21/16 09:09 IMPRESSION: Question 1 cm mass left cerebellar hemisphere. No acute hemorrhage. Atrophy and marked microvascular ischemic change. Pelvis CT 12/21/16 10:35 IMPRESSION: Acute comminuted intertrochanteric left proximal femoral fracture. Fluoroscopy 12/22/16 00:00 IMPRESSION: Please see combined report for performance of procedure and radiologic supervision and interpretation. Hip X-Ray 12/22/16 00:00 IMPRESSION: IMAGE(S) OBTAINED DURING PROCEDURE. Assessment & Plan - Diagnosis (1) Fracture, intertrochanteric, left femur Qualifiers: Encounter type: initial encounter Fracture type: closed Qualified Code(s): S72.142A - Displaced intertrochanteric fracture of left femur , initial encounter for closed fracture Is this a current diagnosis for this admission?: Yes (2) Closed left hip fracture Qualifiers: Encounter type: initial encounter Qualified Code(s): S72.002A - Fracture of unspecified part of neck of left femur, initial encounter for closed fracture Is this a current diagnosis for this admission?: Yes (3) Dementia Qualifiers: Dementia type: unspecified type Dementia behavioral disturbance: without behavioral disturbance Qualified Code(s): F03.90 - Unspecified dementia without behavioral disturbance Is this a current diagnosis for this admission?: Yes (4) Spinal stenosis of lumbar region at multiple levels Is this a current diagnosis for this admission?: Yes (5) Personal history of stroke with current residual effects Is this a current diagnosis for this admission?: Yes (6) Preprocedural cardiovascular examination Is this a current diagnosis for this admission?: Yes - Plan Summary Plan Summary: She will need to go to rehab at [place]
[2016-12-24] MEDS: DEXTROSE 5%-NORMAL SALINE 1,000 ML IV PRN (03:01)
[2016-12-24] MEDS: HYDROMORPHONE HCL INJ/PF 2 MG/ML AMPULE IV PRN ×4 (03:02→21:17)
[2016-12-24 06:28] LABS: ABSOLUTE EOSINOPHILS # (AUTO) 0.2 10^3/uL (0.0-0.6); ABSOLUTE LYMPHOCYTES (AUTO) 1.3 10^3/uL (0.5-4.7); ABSOLUTE MONOCYTES (AUTO) 0.9 10^3/uL (0.1-1.4); ABSOLUTE NEUT (AUTO) 4.2 10^3/uL (1.7-8.2); BASOPHILS % (AUTO) 0.4 % (0-2); EOSINOPHILS % (AUTO) 2.5 % (0-6); HEMATOCRIT 25.4 % (36.0-47.0); HEMOGLOBIN 8.8 g/dL (12.0-15.5); LYMPHOCYTES % (AUTO) 19.9 % (13-45); MEAN CORPUSCULAR HEMOGLOBIN 31.7 pg (27.0-33.4); MEAN CORPUSCULAR HGB CONC 34.5 g/dL (32.0-36.0); MEAN CORPUSCULAR VOLUME 92 fl (80-97); MONOCYTES % (AUTO) 14.3 % (3-13); RED BLOOD COUNT 2.76 10^6/uL (3.72-5.28); RED CELL DISTRIBUTION WIDTH 15.1 % (11.5-14.0); SEGMENTED NEUTROPHILS % (AUTO) 62.9 % (42-78); WHITE BLOOD COUNT 6.6 10^3/uL (4.0-10.5)
[2016-12-24] MEDS: ENOXAPARIN SODIUM INJ 40 MG/0.4 ML DISP.SYRIN SUBCUT SCH (09:39)
--- NOTE | 2016-12-24 15:06 | PDOC PROGRESS REPORT ---
Subjective Progress Note for:: 12/24/16 Subjective:: Patient is resting comfortably in bed. Sponge to her name. Unable to answer any further questions. Autonomy there was no issues overnight. Nurse also told me that the patient was at least set up to the bed but did not participate with physical therapy due to already being a nonambulator. Pain seems to be under control. Physical Exam Vital Signs: Temp Pulse Resp BP Pulse Ox 36.3 C 81 18 125/46 L 98 12/24/16 07:53 12/24/16 07:53 12/24/16 07:53 12/24/16 07:53 12/24/16 07:53 Intake & Output 12/23/16 12/24/16 12/25/16 06:59 06:59 06:59 Intake Total 7983 2914 Output Total 750 680 Balance 7205 2234 Weight 71.1 kg 72.1 kg Adult Front & Back Image: 1 - Dressing and incision are dry clean and intact. Tender to palpation. Response to stimuli distally. Able to extend and flex toes and ankle. Good capillary refill. Results Laboratory Results: 12/24/16 05:12/22/16 06:10 12/22/16 12/24/16 09:24 05:17 WBC 6.6 RBC 2.76 L Hgb 8.8 L Hct 25.4 L MCV 92 MCH 31.7 MCHC 34.5 RDW 15.1 H Plt Count 91 L Seg Neutrophils % 62.9 Lymphocytes % 19.9 Monocytes % 14.3 H Eosinophils % 2.5 Basophils % 0.4 Absolute Neutrophils 4.2 Absolute Lymphocytes 1.3 Absolute Monocytes 0.9 Absolute Eosinophils 0.2 Absolute Basophils 0.0 Blood Type A NEGATIVE Antibody Screen NEGATIVE 12/22/16 02:40 Michel Catheter Urine Culture - Final NO GROWTH 2 DAYS 12/21/16 12/21/16 12/21/16 18:35 18:35 18:35 Creatine Kinase 134 CK-MB (CK-2) 1.20 Troponin I 0.013 NT-Pro-B Natriuret Pep 1670 H 12/22/16 12/22/1617 00:27 00:27 06:10 Creatine Kinase 135 127 CK-MB (CK-2) 0.97 Troponin I 0.015 NT-Pro-B Natriuret Pep 12/22/16 06:10 Creatine Kinase CK-MB (CK-2) 0.75 Troponin I < 0.012 NT-Pro-B Natriuret Pep Impressions: Femur X-Ray 12/21/16 07:21 IMPRESSION: Comminuted fracture of the proximal left femur as noted above Lumbar Spine X-Ray 12/21/16 07:22 IMPRESSION: SPONDYLOSIS WITHOUT BONE LESION OR FRACTURE. Head CT 12/21/16 09:09 IMPRESSION: Question 1 cm mass left cerebellar hemisphere. No acute hemorrhage. Atrophy and marked microvascular ischemic change. Pelvis CT 12/21/16 10:35 IMPRESSION: Acute comminuted intertrochanteric left proximal femoral fracture. Fluoroscopy 12/22/16 00:00 IMPRESSION: Please see combined report for performance of procedure and radiologic supervision and interpretation. Hip X-Ray 12/22/16 00:00 IMPRESSION: IMAGE(S) OBTAINED DURING PROCEDURE. Assessment & Plan - Plan Summary Plan Summary: 86-year-old female postop day 1 from cephalo-medullary nailing of left intertrochanteric hip fracture. Patient with acute blood loss anemia. Need to monitor H&H and potentially give 2 units of PRBC if it drops any further. Continue pain control. Awaiting discharge planning to return to detention.
[2016-12-25] MEDS: HYDROMORPHONE HCL INJ/PF 2 MG/ML AMPULE IV PRN ×4 (06:06→23:44)
[2016-12-25] MEDS: ENOXAPARIN SODIUM INJ 40 MG/0.4 ML DISP.SYRIN SUBCUT SCH (07:49)
--- NOTE | 2016-12-25 18:53 | PDOC PROGRESS REPORT ---
Subjective Progress Note for:: 12/24/16 Subjective:: She had operative correction of the fracture today, there is no new complaint she will require jail [facility] Physical Exam Vital Signs: Temp Pulse Resp BP Pulse Ox 99.0 F 90 22 H 130/54 H 95 12/25/16 16:15 12/25/16 16:15 12/25/16 16:15 12/25/16 16:15 12/25/16 16:15 Intake & Output 12/24/16 12/25/16 12/26/16 06:59 06:59 06:59 Intake Total 2914 2251 1060 Output Total 680 900 400 Balance 2234 1351 660 Weight 72.1 kg 70.6 kg General appearance: PRESENT: no acute distress Eye exam: PRESENT: PERRLA Respiratory exam: PRESENT: clear to auscultation maximo Cardiovascular exam: PRESENT: +S1, +S2 Results Laboratory Results: 12/24/16 05:17 12/22/16 06:10 12/21/16 12/21/16 12/21/16 18:35 18:35 18:35 Creatine Kinase 134 CK-MB (CK-2) 1.20 Troponin I 0.013 NT-Pro-B Natriuret Pep 1670 H 12/22/16 12/22/16 12/22/16 00:27 00:27 06:10 Creatine Kinase 135 127 CK-MB (CK-2) 0.97 Troponin I 0.015 NT-Pro-B Natriuret Pep 12/22/16 06:10 Creatine Kinase CK-MB (CK-2) 0.75 Troponin I < 0.012 NT-Pro-B Natriuret Pep Impressions: Femur X-Ray 12/21/16 07:21 IMPRESSION: Comminuted fracture of the proximal left femur as noted above Lumbar Spine X-Ray 12/21/16 07:22 IMPRESSION: SPONDYLOSIS WITHOUT BONE LESION OR FRACTURE. Head CT 12/21/16 09:09 IMPRESSION: Question 1 cm mass left cerebellar hemisphere. No acute hemorrhage. Atrophy and marked microvascular ischemic change. Pelvis CT 12/21/16 10:35 IMPRESSION: Acute comminuted intertrochanteric left proximal femoral fracture. Fluoroscopy 12/22/16 00:00 IMPRESSION: Please see combined report for performance of procedure and radiologic supervision and interpretation. Hip X-Ray 12/22/16 00:00 IMPRESSION: IMAGE(S) OBTAINED DURING PROCEDURE. Assessment & Plan - Diagnosis (1) Fracture, intertrochanteric, left femur Qualifiers: Encounter type: initial encounter Fracture type: closed Qualified Code(s): S72.142A - Displaced intertrochanteric fracture of left femur , initial encounter for closed fracture Is this a current diagnosis for this admission?: Yes (2) Closed left hip fracture Qualifiers: Encounter type: initial encounter Qualified Code(s): S72.002A - Fracture of unspecified part of neck of left femur, initial encounter for closed fracture Is this a current diagnosis for this admission?: Yes (3) Dementia Qualifiers: Dementia type: unspecified type Dementia behavioral disturbance: without behavioral disturbance Qualified Code(s): F03.90 - Unspecified dementia without behavioral disturbance Is this a current diagnosis for this admission?: Yes (4) Spinal stenosis of lumbar region at multiple levels Is this a current diagnosis for this admission?: Yes (5) Personal history of stroke with current residual effects Is this a current diagnosis for this admission?: Yes (6) Preprocedural cardiovascular examination Is this a current diagnosis for this admission?: Yes
--- NOTE | 2016-12-25 18:54 | PDOC PROGRESS REPORT ---
Subjective Progress Note for:: 12/25/16 Subjective:: Patient admitted because of fracture hip, awaiting bed [facility] Physical Exam Vital Signs: Temp Pulse Resp BP Pulse Ox 99.0 F 90 22 H 130/54 H 95 12/25/16 16:15 12/25/16 16:15 12/25/16 16:15 12/25/16 16:15 12/25/16 16:15 Intake & Output 12/24/16 12/25/16 12/26/16 06:59 06:59 06:59 Intake Total 2914 2251 1060 Output Total 680 900 400 Balance 2234 1351 660 Weight 72.1 kg 70.6 kg General appearance: PRESENT: no acute distress Eye exam: PRESENT: PERRLA Respiratory exam: PRESENT: clear to auscultation maximo Cardiovascular exam: PRESENT: +S1, +S2 Results Laboratory Results: 12/24/16 05:17 12/22/16 06:10 12/21/16 12/21/16 12/21/16 18:35 18:35 18:35 Creatine Kinase 134 CK-MB (CK-2) 1.20 Troponin I 0.013 NT-Pro-B Natriuret Pep 1670 H 12/22/16 12/22/16 12/22/16 00:27 00:27 06:10 Creatine Kinase 135 127 CK-MB (CK-2) 0.97 Troponin I 0.015 NT-Pro-B Natriuret Pep 12/22/16 06:10 Creatine Kinase CK-MB (CK-2) 0.75 Troponin I < 0.012 NT-Pro-B Natriuret Pep Impressions: Femur X-Ray 12/21/16 07:21 IMPRESSION: Comminuted fracture of the proximal left femur as noted above Lumbar Spine X-Ray 12/21/16 07:22 IMPRESSION: SPONDYLOSIS WITHOUT BONE LESION OR FRACTURE. Head CT 12/21/16 09:09 IMPRESSION: Question 1 cm mass left cerebellar hemisphere. No acute hemorrhage. Atrophy and marked microvascular ischemic change. Pelvis CT 12/21/16 10:35 IMPRESSION: Acute comminuted intertrochanteric left proximal femoral fracture. Fluoroscopy 12/22/16 00:00 IMPRESSION: Please see combined report for performance of procedure and radiologic supervision and interpretation. Hip X-Ray 12/22/16 00:00 IMPRESSION: IMAGE(S) OBTAINED DURING PROCEDURE. Assessment & Plan - Diagnosis (1) Fracture, intertrochanteric, left femur Qualifiers: Encounter type: initial encounter Fracture type: closed Qualified Code(s): S72.142A - Displaced intertrochanteric fracture of left femur , initial encounter for closed fracture Is this a current diagnosis for this admission?: Yes (2) Closed left hip fracture Qualifiers: Encounter type: initial encounter Qualified Code(s): S72.002A - Fracture of unspecified part of neck of left femur, initial encounter for closed fracture Is this a current diagnosis for this admission?: Yes (3) Dementia Qualifiers: Dementia type: unspecified type Dementia behavioral disturbance: without behavioral disturbance Qualified Code(s): F03.90 - Unspecified dementia without behavioral disturbance Is this a current diagnosis for this admission?: Yes (4) Spinal stenosis of lumbar region at multiple levels Is this a current diagnosis for this admission?: Yes (5) Personal history of stroke with current residual effects Is this a current diagnosis for this admission?: Yes (6) Preprocedural cardiovascular examination Is this a current diagnosis for this admission?: Yes
[2016-12-25] MEDS: DEXTROSE 5%-NORMAL SALINE 1,000 ML IV PRN (22:12)
--- NOTE | 2016-12-25 22:31 | PDOC PROGRESS REPORT ---
Subjective Progress Note for:: 12/25/16 Subjective:: Patient seen on rounds today. No issues. Lying in bed comfortably. Physical Exam Vital Signs: Temp Pulse Resp BP Pulse Ox 98.5 F 102 H 20 115/54 L 92 12/25/16 19:30 12/25/16 19:30 12/25/16 19:30 12/25/16 19:30 12/25/16 19:30 Intake & Output 12/24/16 12/25/16 12/26/16 06:59 06:59 06:59 Intake Total 2914 2251 1060 Output Total 680 900 400 Balance 2234 1351 660 Weight 72.1 kg 70.6 kg Musculoskeletal exam: PRESENT: other - Left Hip: Dressing c/d/i. Intact PF/DF, No calf tenderness. No evidence of limb length inequality or malrotation. Results Laboratory Results: 12/24/16 05:17 12/22/16 06:10 12/21/16 12/21/16 12/21/16 18:35 18:35 18:35 Creatine Kinase 134 CK-MB (CK-2) 1.20 Troponin I 0.013 NT-Pro-B Natriuret Pep 1670 H 12/22/16 12/22/16 12/22/16 00:27 00:27 06:10 Creatine Kinase 135 127 CK-MB (CK-2) 0.97 Troponin I 0.015 NT-Pro-B Natriuret Pep 12/22/16 06:10 Creatine Kinase CK-MB (CK-2) 0.75 Troponin I < 0.012 NT-Pro-B Natriuret Pep Impressions: Femur X-Ray 12/21/16 07:21 IMPRESSION: Comminuted fracture of the proximal left femur as noted above Lumbar Spine X-Ray 12/21/16 07:22 IMPRESSION: SPONDYLOSIS WITHOUT BONE LESION OR FRACTURE. Head CT 12/21/16 09:09 IMPRESSION: Question 1 cm mass left cerebellar hemisphere. No acute hemorrhage. Atrophy and marked microvascular ischemic change. Pelvis CT 12/21/16 10:35 IMPRESSION: Acute comminuted intertrochanteric left proximal femoral fracture. Fluoroscopy 12/22/16 00:00 IMPRESSION: Please see combined report for performance of procedure and radiologic supervision and interpretation. Hip X-Ray 12/22/16 00:00 IMPRESSION: IMAGE(S) OBTAINED DURING PROCEDURE. Assessment & Plan - Diagnosis (1) Fracture, intertrochanteric, left femur Qualifiers: Encounter type: subsequent encounter Fracture type: closed Fracture healing: with routine healing Qualified Code(s): S72.142D - Displaced intertrochanteric fracture of left femur, subsequent encounter for closed fracture with routine healing Is this a current diagnosis for this admission?: YesPlan: s/p Cephalomedullary Nail Intertrochanteric Hip Fx 1. Pain control 2. Transfers only given patients non ambulatory pre op status and high fall risk 3. Lovenox 4. D/C Planning to SNF when bed available.
[2016-12-26] MEDS: HYDROMORPHONE HCL INJ/PF 2 MG/ML AMPULE IV PRN ×5 (03:47→23:29)
[2016-12-26] MEDS: ENOXAPARIN SODIUM INJ 40 MG/0.4 ML DISP.SYRIN SUBCUT SCH (07:54)
--- NOTE | 2016-12-26 07:54 | PDOC PROGRESS REPORT ---
Subjective Progress Note for:: 12/26/16 Subjective:: Patient without any complaints today Physical Exam Vital Signs: Temp Pulse Resp BP Pulse Ox 36.8 C 83 20 128/43 H 96 12/26/16 00:22 12/26/16 00:22 12/26/16 00:22 12/26/16 00:22 12/26/16 00:22 Intake & Output 12/25/16 12/26/16 12/27/16 06:59 06:59 06:59 Intake Total 2251 2100 Output Total 900 1100 Balance 1351 1000 Weight 70.6 kg 81.1 kg General appearance: PRESENT: no acute distress Head exam: PRESENT: normocephalic Respiratory exam: PRESENT: unlabored Pulses: PRESENT: +1 pedal pulses bilateral Vascular exam: PRESENT: normal capillary refill GI/Abdominal exam: PRESENT: soft Rectal exam: PRESENT: deferred Extremities exam: PRESENT: other - Left lower extremity dressings clean dry and intact. Results Laboratory Results: 12/24/16 05:12/22/16 06:10 12/21/16 12/21/16 12/21/16 18:35 18:35 18:35 Creatine Kinase 134 CK-MB (CK-2) 1.20 Troponin I 0.013 NT-Pro-B Natriuret Pep 1670 H 12/22/16 12/22/16 12/22/16 00:27 00:27 06:10 Creatine Kinase 135 127 CK-MB (CK-2) 0.97 Troponin I 0.015 NT-Pro-B Natriuret Pep 12/22/16 06:10 Creatine Kinase CK-MB (CK-2) 0.75 Troponin I < 0.012 NT-Pro-B Natriuret Pep Impressions: Femur X-Ray 12/21/16 07:21 IMPRESSION: Comminuted fracture of the proximal left femur as noted above Lumbar Spine X-Ray 12/21/16 07:22 IMPRESSION: SPONDYLOSIS WITHOUT BONE LESION OR FRACTURE. Head CT 12/21/16 09:09 IMPRESSION: Question 1 cm mass left cerebellar hemisphere. No acute hemorrhage. Atrophy and marked microvascular ischemic change. Pelvis CT 12/21/16 10:35 IMPRESSION: Acute comminuted intertrochanteric left proximal femoral fracture. Fluoroscopy 12/22/16 00:00 IMPRESSION: Please see combined report for performance of procedure and radiologic supervision and interpretation. Hip X-Ray 12/22/16 00:00 IMPRESSION: IMAGE(S) OBTAINED DURING PROCEDURE. Status: Imported from PACS Assessment & Plan - Diagnosis (1) Fracture, intertrochanteric, left femur Qualifiers: Encounter type: subsequent encounter Fracture type: closed Fracture healing: with routine healing Qualified Code(s): S72.142D - Displaced intertrochanteric fracture of left femur, subsequent encounter for closed fracture with routine healing Is this a current diagnosis for this admission?: YesPlan: Patient's an 86-year-old nonambulatory white female status post open reduction internal fixation of a left proximal femur fracture with an uneventful postoperative course.
--- NOTE | 2016-12-26 10:20 | PDOC PROGRESS REPORT ---
Subjective Progress Note for:: 12/26/16 Subjective:: At baseline dementia. s/p fall with left hip fracture ORIF procedure. awaiting SNF placement Physical Exam Vital Signs: Temp Pulse Resp BP Pulse Ox 97.9 F 89 18 133/58 H 94 12/26/16 08:01 12/26/16 08:01 12/26/16 08:01 12/26/16 08:01 12/26/16 08:01 Intake & Output 12/25/16 12/26/16 12/27/16 06:59 06:59 06:59 Intake Total 2251 2100 Output Total 900 1100 Balance 1351 1000 Weight 70.6 kg 81.1 kg General appearance: PRESENT: no acute distress, cooperative Head exam: PRESENT: atraumatic, normocephalic Mouth exam: PRESENT: moist Respiratory exam: PRESENT: clear to auscultation maximo, decreased breath sounds - at lung bases Cardiovascular exam: PRESENT: RRR. ABSENT: diastolic murmur, rubs, systolic murmur GI/Abdominal exam: PRESENT: normal bowel sounds, soft. ABSENT: distended, guarding, mass, organolmegaly, rebound, tenderness Extremities exam: PRESENT: pedal edema - left leg Musculoskeletal exam: PRESENT: deformity - related to arthitis involvmnt of most joints Neurological exam: PRESENT: awake - but baseline dementia Skin exam: PRESENT: dry, warm, other - operative site dressing satisfactory Results Laboratory Results: 12/24/16 05:17 12/22/16 06:10 12/21/16 12/21/16 12/21/16 18:35 18:35 18:35 Creatine Kinase 134 CK-MB (CK-2) 1.20 Troponin I 0.013 NT-Pro-B Natriuret Pep 1670 H 12/22/16 12/22/16 12/22/16 00:27 00:27 06:10 Creatine Kinase 135 127 CK-MB (CK-2) 0.97 Troponin I 0.015 NT-Pro-B Natriuret Pep 12/22/16 06:10 Creatine Kinase CK-MB (CK-2) 0.75 Troponin I < 0.012 NT-Pro-B Natriuret Pep Impressions: Femur X-Ray 12/21/16 07:21 IMPRESSION: Comminuted fracture of the proximal left femur as noted above Lumbar Spine X-Ray 12/21/16 07:22 IMPRESSION: SPONDYLOSIS WITHOUT BONE LESION OR FRACTURE. Head CT 12/21/16 09:09 IMPRESSION: Question 1 cm mass left cerebellar hemisphere. No acute hemorrhage. Atrophy and marked microvascular ischemic change. Pelvis CT 12/21/16 10:35 IMPRESSION: Acute comminuted intertrochanteric left proximal femoral fracture. Fluoroscopy 12/22/16 00:00 IMPRESSION: Please see combined report for performance of procedure and radiologic supervision and interpretation. Hip X-Ray 12/22/16 00:00 IMPRESSION: IMAGE(S) OBTAINED DURING PROCEDURE. Assessment & Plan - Diagnosis (1) Dementia Qualifiers: Dementia type: unspecified type Dementia behavioral disturbance: without behavioral disturbance Qualified Code(s): F03.90 - Unspecified dementia without behavioral disturbance Is this a current diagnosis for this admission?: YesPlan: Continue current medication management (2) Fracture, intertrochanteric, left femur Qualifiers: Encounter type: subsequent encounter Fracture type: closed Fracture healing: with routine healing Qualified Code(s): S72.142D - Displaced intertrochanteric fracture of left femur, subsequent encounter for closed fracture with routine healing Is this a current diagnosis for this admission?: YesPlan: Continue current medication management (3) Anemia due to blood loss, acute Is this a current diagnosis for this admission?: YesPlan: Continue current medication management - Time Time Spent with patient: 25-34 minutes Medications reviewed and adjusted accordingly: Yes Anticipated discharge: SNF Within: Other - Inpatient Certification Based on my medical assessment, after consideration of the patient's comorbidities, presenting symptoms, or acuity I expect that the services needed warrant INPATIENT care.: Yes I certify that my determination is in accordance with my understanding of Medicare's requirements for reasonable and necessary INPATIENT services [42 CFR 412.3e].: Yes Medical Necessity: Need Close Monitoring Due to Risk of Patient Decompensation, Need for Pain Control, Risk of Complication if Not Cared For in Hospital Post Hospital Care: D/C or Transfer Summary - Plan Summary Plan Summary: Obtain CBC with diff. Continue current medication management
[2016-12-26] MEDS: LORAZEPAM INJ 2 MG/1 ML VIAL IV PRN (16:48)
[2016-12-27] MEDS: LORAZEPAM INJ 2 MG/1 ML VIAL IV PRN ×2 (02:14→23:17)
[2016-12-27] MEDS: HYDROMORPHONE HCL INJ/PF 2 MG/ML AMPULE IV PRN ×5 (04:02→21:08)
[2016-12-27] MEDS: DEXTROSE 5%-NORMAL SALINE 1,000 ML IV PRN (06:50)
[2016-12-27] MEDS: ENOXAPARIN SODIUM INJ 40 MG/0.4 ML DISP.SYRIN SUBCUT SCH (09:00)
--- NOTE | 2016-12-27 11:35 | PDOC PROGRESS REPORT ---
Subjective Progress Note for:: 12/27/16 Subjective:: At baseline dementia. Patient's pain is fairly controlled on current medication management. She is s/p fall with left hip fracture and ORIF procedure. she is awaiting SNF placement. No reported fever or chills. Physical Exam Vital Signs: Temp Pulse Resp BP Pulse Ox 98.2 F 74 16 131/50 H 95 12/27/16 08:00 12/27/16 08:00 12/27/16 08:00 12/27/16 08:00 12/27/16 08:00 Intake & Output 12/26/16 12/27/16 12/28/16 06:59 06:59 06:59 Intake Total 2100 1940 Output Total 1100 1300 Balance 1000 640 Weight 81.1 kg 79.7 kg Physical Exam: General appearance: PRESENT: no acute distress, cooperative Head exam: PRESENT: atraumatic, normocephalic Mouth exam: PRESENT: moist Respiratory exam: PRESENT: clear to auscultation maximo, decreased breath sounds - at lung bases Cardiovascular exam: PRESENT: RRR. ABSENT: diastolic murmur, rubs, systolic murmur GI/Abdominal exam: PRESENT: normal bowel sounds, soft. ABSENT: distended, guarding, mass, organomegaly, rebound, tenderness Extremities exam: PRESENT: pedal edema - left leg Musculoskeletal exam: PRESENT: deformity - related to arthritis involvement of most joints Neurological exam: PRESENT: awake - but baseline dementia Skin exam: PRESENT: dry, warm, other - operative site dressing satisfactory Results Laboratory Results: 12/24/16 05:17 12/22/16 06:10 12/21/16 19:27 Blood Blood Culture - Final NO GROWTH IN 5 DAYS 12/21/16 18:35 Blood Blood Culture - Final NO GROWTH IN 5 DAYS 12/21/16 12/21/16 12/21/16 18:35 18:35 18:35 Creatine Kinase 134 CK-MB (CK-2) 1.20 Troponin I 0.013 NT-Pro-B Natriuret Pep 1670 H 12/22/16 12/22/16 12/22/16 00:27 00:27 06:10 Creatine Kinase 135 127 CK-MB (CK-2) 0.97 Troponin I 0.015 NT-Pro-B Natriuret Pep 12/22/16 06:10 Creatine Kinase CK-MB (CK-2) 0.75 Troponin I < 0.012 NT-Pro-B Natriuret Pep Impressions: Femur X-Ray 12/21/16 07:21 IMPRESSION: Comminuted fracture of the proximal left femur as noted above Lumbar Spine X-Ray 12/21/16 07:22 IMPRESSION: SPONDYLOSIS WITHOUT BONE LESION OR FRACTURE. Head CT 12/21/16 09:09 IMPRESSION: Question 1 cm mass left cerebellar hemisphere. No acute hemorrhage. Atrophy and marked microvascular ischemic change. Pelvis CT 12/21/16 10:35 IMPRESSION: Acute comminuted intertrochanteric left proximal femoral fracture. Fluoroscopy 12/22/16 00:00 IMPRESSION: Please see combined report for performance of procedure and radiologic supervision and interpretation. Hip X-Ray 12/22/16 00:00 IMPRESSION: IMAGE(S) OBTAINED DURING PROCEDURE. Assessment & Plan - Diagnosis (1) Dementia Qualifiers: Dementia type: unspecified type Dementia behavioral disturbance: without behavioral disturbance Qualified Code(s): F03.90 - Unspecified dementia without behavioral disturbance Is this a current diagnosis for this admission?: Yes (2) Fracture, intertrochanteric, left femur Qualifiers: Encounter type: subsequent encounter Fracture type: closed Fracture healing: with routine healing Qualified Code(s): S72.142D - Displaced intertrochanteric fracture of left femur, subsequent encounter for closed fracture with routine healing Is this a current diagnosis for this admission?: Yes (3) Anemia due to blood loss, acute Is this a current diagnosis for this admission?: Yes - Time Time Spent with patient: 25-34 minutes Anticipated discharge: SNF Within: Other - Inpatient Certification Medical Necessity: Need Close Monitoring Due to Risk of Patient Decompensation, Need for Pain Control, Risk of Complication if Not Cared For in Hospital Post Hospital Care: D/C or Transfer Summary - Plan Summary Plan Summary: See covering attending physician orders.
[2016-12-27] MEDS ORDERED: FUROSEMIDE INJ/PF 20 MG/2 ML SDV IV ONE (19:45)
[2016-12-27] MEDS ORDERED: BISACODYL 10 MG SUPP.RECT PR ONE (20:00)
[2016-12-28] MEDS: HYDROMORPHONE HCL INJ/PF 2 MG/ML AMPULE IV PRN ×4 (04:16→17:33)
[2016-12-28] MEDS: ENOXAPARIN SODIUM INJ 40 MG/0.4 ML DISP.SYRIN SUBCUT SCH (07:27)
--- NOTE | 2016-12-28 07:54 | PDOC PROGRESS REPORT ---
Subjective Progress Note for:: 12/28/16 Subjective:: Patient lying in bed comfortable. No issues overnight. Pain controlled. Physical Exam Vital Signs: Temp Pulse Resp BP Pulse Ox 98.3 F 81 15 111/60 93 12/27/16 23:46 12/27/16 23:46 12/27/16 23:46 12/27/16 23:46 12/27/16 23:46 Intake & Output 12/27/16 12/28/16 12/29/16 06:59 06:59 06:59 Intake Total 1940 2031 Output Total 1300 3400 Balance 640 -1369 Weight 79.7 kg 80.2 kg Musculoskeletal exam: PRESENT: other - Left hip: Dressing clean/dry/intact no erythema or drainage. Intact plantar flexion/dorsiflexion. No calf tenderness. Negative Homans. Results Laboratory Results: 12/24/16 05:17 12/22/16 06:10 12/21/16 12/21/16 12/21/16 18:35 18:35 18:35 Creatine Kinase 134 CK-MB (CK-2) 1.20 Troponin I 0.013 NT-Pro-B Natriuret Pep 1670 H 12/22/16 12/22/16 12/22/16 00:27 00:27 06:10 Creatine Kinase 135 127 CK-MB (CK-2) 0.97 Troponin I 0.015 NT-Pro-B Natriuret Pep 12/22/16 06:10 Creatine Kinase CK-MB (CK-2) 0.75 Troponin I < 0.012 NT-Pro-B Natriuret Pep Impressions: Femur X-Ray 12/21/16 07:21 IMPRESSION: Comminuted fracture of the proximal left femur as noted above Lumbar Spine X-Ray 12/21/16 07:22 IMPRESSION: SPONDYLOSIS WITHOUT BONE LESION OR FRACTURE. Head CT 12/21/16 09:09 IMPRESSION: Question 1 cm mass left cerebellar hemisphere. No acute hemorrhage. Atrophy and marked microvascular ischemic change. Pelvis CT 12/21/16 10:35 IMPRESSION: Acute comminuted intertrochanteric left proximal femoral fracture. Fluoroscopy 12/22/16 00:00 IMPRESSION: Please see combined report for performance of procedure and radiologic supervision and interpretation. Hip X-Ray 12/22/16 00:00 IMPRESSION: IMAGE(S) OBTAINED DURING PROCEDURE. Assessment & Plan - Diagnosis (1) Fracture, intertrochanteric, left femur Qualifiers: Encounter type: subsequent encounter Fracture type: closed Fracture healing: with routine healing Qualified Code(s): S72.142D - Displaced intertrochanteric fracture of left femur, subsequent encounter for closed fracture with routine healing Is this a current diagnosis for this admission?: YesPlan: #1 pain control #2 physical therapy transfers only given patient's previous not ambulatory status she is high risk for falls #3 Lovenox for DVT prophylaxis #4 discharge planning to [facility] when bed available
--- NOTE | 2016-12-28 19:05 | PDOC TRANSFER SUMMARY ---
General - Admit/Disc Date/PCP Admission Date/Primary Care Provider: 12/21/16 18:12 PATRICIA BOGGS MD Discharge Date: 12/29/16 - Discharge Diagnosis (1) Fracture, intertrochanteric, left femur Is this a current diagnosis for this admission?: Yes (2) Closed left hip fracture Is this a current diagnosis for this admission?: Yes (3) Dementia Is this a current diagnosis for this admission?: Yes (4) Spinal stenosis of lumbar region at multiple levels Is this a current diagnosis for this admission?: Yes (5) Personal history of stroke with current residual effects Is this a current diagnosis for this admission?: Yes (6) Preprocedural cardiovascular examination Is this a current diagnosis for this admission?: Yes - Additional Information Resuscitation Status: Full Code Discharge Diet: As Tolerated Discharge Activity: Activity As Tolerated Home Medications: Acetaminophen [Tylenol 325 mg Tablet] 650 mg PO Q4HP PRN 12/21/16 Aspirin/Dipyridamole [Aggrenox 25 mg-200 mg Capsule] 1 cap PO BID 12/21/16 Atorvastatin Calcium [Lipitor 80 mg Tablet] 80 mg PO DAILY 12/21/16 Clonazepam [Klonopin] 0.5 mg PO BID 12/21/16 Donepezil HCl [Aricept] 10 mg PO QHS 12/21/16 Estrogens,Conjugated [Premarin Vaginal Cream (0.625 mg/gm) 30 gm] 1 gm VG DAILY 12/21/16 Guaifenesin [Robitussin Syrup 200 mg/10 ml Ud Cup] 10 ml PO Q4HP PRN 12/21/16 Loperamide HCl [Imodium A-D] 2 mg PO PRN PRN 12/21/16 Losartan Potassium [Cozaar 25 mg Tablet] 25 mg PO DAILY 12/21/16 Memantine HCl [Namenda Xr] 28 mg PO DAILY 12/21/16 Methyl Salicylate/Menth/Camph [Salonpas Patch] 2 patch TOP Q8 12/21/16 Pregabalin [Lyrica 100 mg Capsule] 100 mg PO TID 12/21/16 Enoxaparin Sodium [Lovenox Inj 40 mg/0.4 ml Disp.syrin] 40 mg SUBCUT QAM #0 disp.syrin 12/28/16 History of Present Illness Admission Date/PCP: 12/21/16 18:12 PATRICIA BOGGS MD History of Present Illness: Patient 86-year-old female with dementia, advanced, she is non-ambulatory, she is wheelchair-bound, resident of assisted living facility in [place] she fell earlier today while she was trying to ambulate, she came to the emergency room for evaluation because of pain x-ray was done he showed a comminuted fracture involving the proximal left femoral at the level of the greater and lesser trochanter with associated angulation. The family is contemplating between operative versus nonoperative option I suggested to them that she is better off to pursue operative option at least for pain control. Based on the revised cardiac risk index score, she has a history of CVA, she has no history of congestive heart failure, she has no history of coronary artery disease, she has no history of chronic kidney disease with serum creatinine more than 2, she has no history of insulin requiring diabetes mellitus and the anticipated procedure is intermediate risk based on the revised cardiac risk index score she is relative low risk for cardiac events in the perioperative. Orthopedic surgeon can proceed no further workup is warranted or indicated. Hospital Course Hospital Course: Patient fell and sustained left intertrochanteric fracture. She was seen by orthopedic and she underwent left cephalo-medullary nail of intertrochanteric fracture this was done December 22, 2016. The plan for transfer to alf for rehabilitation. She came from assisted living facility, at [facility] in [facility]. Pain control was achieved with Dilaudid in the hospital. Physical Exam Vital Signs: Temp Pulse Resp BP Pulse Ox 98.8 F 84 16 109/57 L 94 12/28/16 16:00 12/28/16 16:00 12/28/16 16:00 12/28/16 16:00 12/28/16 18:15 Intake & Output 12/27/16 12/28/16 12/29/16 06:59 06:59 06:59 Intake Total 1940 2031 320 Output Total 1300 3400 450 Balance 640 -1369 -130 Weight 79.7 kg 80.2 kg General appearance: PRESENT: no acute distress Eye exam: PRESENT: PERRLA Respiratory exam: PRESENT: clear to auscultation maximo Cardiovascular exam: PRESENT: +S1, +S2 GI/Abdominal exam: PRESENT: soft Results Laboratory Results: 12/24/16 05:17 12/22/16 06:10 12/21/16 12/21/16 12/21/16 18:35 18:35 18:35 Creatine Kinase 134 CK-MB (CK-2) 1.20 Troponin I 0.013 NT-Pro-B Natriuret Pep 1670 H 12/22/16 12/22/16 12/22/16 00:27 00:27 06:10 Creatine Kinase 135 127 CK-MB (CK-2) 0.97 Troponin I 0.015 NT-Pro-B Natriuret Pep 12/22/16 06:10 Creatine Kinase CK-MB (CK-2) 0.75 Troponin I < 0.012 NT-Pro-B Natriuret Pep Impressions: Femur X-Ray 12/21/16 07:21 IMPRESSION: Comminuted fracture of the proximal left femur as noted above Lumbar Spine X-Ray 12/21/16 07:22 IMPRESSION: SPONDYLOSIS WITHOUT BONE LESION OR FRACTURE. Head CT 12/21/16 09:09 IMPRESSION: Question 1 cm mass left cerebellar hemisphere. No acute hemorrhage. Atrophy and marked microvascular ischemic change. Pelvis CT 12/21/16 10:35 IMPRESSION: Acute comminuted intertrochanteric left proximal femoral fracture. Fluoroscopy 12/22/16 00:00 IMPRESSION: Please see combined report for performance of procedure and radiologic supervision and interpretation. Hip X-Ray 12/22/16 00:00 IMPRESSION: IMAGE(S) OBTAINED DURING PROCEDURE.
[2016-12-28] MEDS ORDERED: GUAIFENESIN SYRP 200 MG/10 ML UDC PO PRN (19:20)
[2016-12-28] MEDS ORDERED: ACETAMINOPHEN 325 MG TABLET PO PRN (19:20)
[2016-12-28] MEDS ORDERED: (PENDING PHARMACY ID) (Loperamide Hcl [Imodium A-D] 2 MG) PO PRN (19:20)
[2016-12-28] MEDS ORDERED: (PENDING PHARMACY ID) (Clonazepam [Klonopin] 0.5 MG) PO SCH (19:30)
[2016-12-28] MEDS ORDERED: [UNRECOGNIZED DRUG - OTHER] TOP SCH (19:30)
[2016-12-28] MEDS ORDERED: (PENDING PHARMACY ID) (Memantine Hcl [Namenda Xr] 28 MG) PO SCH ×2 (19:30→21:00)
[2016-12-28] MEDS ORDERED: PREGABALIN 100 MG CAPSULE PO ONE (20:30)
[2016-12-28] MEDS ORDERED: ATORVASTATIN CALCIUM 80 MG TABLET PO ONE (21:00)
[2016-12-28] MEDS ORDERED: ASPIRIN/DIPYRIDAMOLE 25-200 MG 1 CAP.SR CPMP.12HR PO ONE (21:00)
[2016-12-28] MEDS ORDERED: LOSARTAN POTASSIUM 25 MG TABLET PO ONE (21:00)
[2016-12-28] MEDS: PREGABALIN 100 MG CAPSULE PO SCH (21:52)
[2016-12-28] MEDS: NA PHOS,M-B/NA PHOS,DI-BA (ADULT) 133 ML ENEMA PR SCH (21:53)
[2016-12-28] MEDS ORDERED: (PENDING PHARMACY ID) (Donepezil Hcl [Aricept] 10 MG) PO SCH (22:00)
[2016-12-28] MEDS ORDERED: ESTROGENS,CONJUGATED 0.625 MG/1 GM 30 GM TUBE VG SCH (22:00)
[2016-12-28] MEDS ORDERED: DONEPEZIL HCL 5 MG TABLET PO SCH (22:00)
[2016-12-29] MEDS: PREGABALIN 100 MG CAPSULE PO SCH ×2 (05:45→15:08)
[2016-12-29] MEDS ORDERED: CLONAZEPAM 1 MG TABLET PO SCH (10:00)
[2016-12-29] MEDS ORDERED: LOSARTAN POTASSIUM 25 MG TABLET PO SCH (10:00)
[2016-12-29] MEDS ORDERED: ATORVASTATIN CALCIUM 80 MG TABLET PO SCH (10:00)
[2016-12-29] MEDS ORDERED: ASPIRIN/DIPYRIDAMOLE 25-200 MG 1 CAP.SR CPMP.12HR PO SCH (10:00)
--- NOTE | 2016-12-29 13:01 | PDOC PROGRESS REPORT ---
Subjective Progress Note for:: 12/29/16 Subjective:: Patient lying in bed comfortably. No issues overnight. Patient at baseline mental status. Physical Exam Vital Signs: Temp Pulse Resp BP Pulse Ox 97.4 F 78 18 139/54 H 92 12/28/16 23:09 12/28/16 23:09 12/28/16 23:09 12/28/16 23:09 12/28/16 23:09 Intake & Output 12/28/16 12/29/16 12/30/16 06:59 06:59 06:59 Intake Total 2031 320 Output Total 3400 850 Balance -1369 -530 Weight 80.2 kg 80.2 kg Musculoskeletal exam: PRESENT: other - Left lower extremity: Dressing clean/dry/ intact. No erythema or drainage. No limb length inequality or malrotation. No calf tenderness. Negative Homans. Results Laboratory Results: 12/24/16 05:17 12/22/16 06:10 12/21/16 12/21/16 12/21/16 18:35 18:35 18:35 Creatine Kinase 134 CK-MB (CK-2) 1.20 Troponin I 0.013 NT-Pro-B Natriuret Pep 1670 H 12/22/16 12/22/16 12/22/16 00:27 00:27 06:10 Creatine Kinase 135 127 CK-MB (CK-2) 0.97 Troponin I 0.015 NT-Pro-B Natriuret Pep 12/22/16 06:10 Creatine Kinase CK-MB (CK-2) 0.75 Troponin I < 0.012 NT-Pro-B Natriuret Pep Impressions: Femur X-Ray 12/21/16 07:21 IMPRESSION: Comminuted fracture of the proximal left femur as noted above Lumbar Spine X-Ray 12/21/16 07:22 IMPRESSION: SPONDYLOSIS WITHOUT BONE LESION OR FRACTURE. Head CT 12/21/16 09:09 IMPRESSION: Question 1 cm mass left cerebellar hemisphere. No acute hemorrhage. Atrophy and marked microvascular ischemic change. Pelvis CT 12/21/16 10:35 IMPRESSION: Acute comminuted intertrochanteric left proximal femoral fracture. Fluoroscopy 12/22/16 00:00 IMPRESSION: Please see combined report for performance of procedure and radiologic supervision and interpretation. Hip X-Ray 12/22/16 00:00 IMPRESSION: IMAGE(S) OBTAINED DURING PROCEDURE. Assessment & Plan - Diagnosis (1) Fracture, intertrochanteric, left femur Qualifiers: Encounter type: subsequent encounter Fracture type: closed Fracture healing: with routine healing Qualified Code(s): S72.142D - Displaced intertrochanteric fracture of left femur, subsequent encounter for closed fracture with routine healing Is this a current diagnosis for this admission?: YesPlan: 1. nonweightbearing left lower extremity given patient's nonambulatory status and high risk for falls 2. Lovenox 3. Discharge planning to alf facility when bed available. Follow- up with me in 14 days.
[2016-12-29] MEDS: ENOXAPARIN SODIUM INJ 40 MG/0.4 ML DISP.SYRIN SUBCUT SCH (14:58)
[2016-12-29] MEDS: NA PHOS,M-B/NA PHOS,DI-BA (ADULT) 133 ML ENEMA PR SCH (15:08)
[2016-12-29 18:38] VITALS: BP 125/68
== END 2016-12-29 17:30 | DRG 481 ==
LOC: ER 06:44 → EH 10:54 → UNDOADMIN 10:54 → 4S 17:19 → EH 17:19 → 4S 18:12
PROVIDERS: ADMIT Internal Medicine; ATTEND Internal Medicine
PROC: 30233N1 Transfusion of Nonautologous Red Blood Cells into Peripheral Vein, Percutaneous Approach (ICD-10-PCS; 2016-12-22)
PROC: 0QS734Z Reposition Left Upper Femur with Internal Fixation Device, Percutaneous Approach (ICD-10-PCS; principal; 2016-12-22 14:30)
DX: S72.142A Displaced intertrochanteric fracture of left femur, initial encounter for closed fracture (principal); D62 Acute posthemorrhagic anemia; W19.XXXA Unspecified fall, initial encounter; Y92.89 Other specified places as the place of occurrence of the external cause; F03.90 Unspecified dementia, unspecified severity, without behavioral disturbance, psychotic disturbance, mood disturbance, and anxiety; M48.06 Spinal stenosis, lumbar region; Z66 Do not resuscitate; I69.30 Unspecified sequelae of cerebral infarction; E11.9 Type 2 diabetes mellitus without complications; M19.90 Unspecified osteoarthritis, unspecified site; Z99.3 Dependence on wheelchair; Z79.82 Long term (current) use of aspirin; Z79.899 Other long term (current) drug therapy; Z91.81 History of falling; Z75.1 Person awaiting admission to adequate facility elsewhere
CPT/HCPCS: 01230; 36415; 36430; 70450; 72110; 72192; 80053; 80061; 80307; 81001; 82140; 82150; 82550; 82553; 83036; 83690; 83735; 83880; 84100; 84439; 84443; 84484; 85025; 85610; 85730; 86850; 86900; 86901; 86920; 86922; 87040; 87086; 88305; 93005; 93010; 96374; 96375; 96376; 99285; C1713; G8978-GP; G8979-GP; G8980-GP; J0131; J0690; J1170; J1650; J1940; J2060; J2250; J2370; J2405; J2704; J3010; J3490; J7030; P9016

== ENCOUNTER 2017-01-16 13:07 | Emergency (ER) | payer MEDICARE ==
[2017-01-16] MEDS ORDERED: NORMAL SALINE 500 ML IV PRN (14:01)
--- NOTE | 2017-01-16 14:16 | ER Document Report ---
ED General - General Stated Complaint: ALTERED MENTAL STATUS Time Seen by Provider: 01/16/17 13:40 Mode of Arrival: Medic Information source: Patient, Emergency Med Personnel, Outside Facility Records Notes: This is an 86-year-old female with a history of dementia, nonambulatory, recent left hip fracture CVA. The patient is brought to the emergency room by EMS from [facility] for change in responsiveness. Staff reported that the patient is not responding as her normal self. TRAVEL OUTSIDE OF THE [place] IN LAST 30 DAYS: No - HPI Onset: This morning Onset/Duration: Gradual Quality of pain: No pain Severity: None Pain Level: Denies Associated symptoms: denies: Chills, Fever, Shortness of breath Exacerbated by: Denies Relieved by: Denies Similar symptoms previously: Yes Recently seen / treated by doctor: No - Related Data Allergies/Adverse Reactions: No Known Allergies Allergy (Verified 01/16/17 15:05) Past Medical History - General Information source: Patient - Social History Smoking Status: Never Smoker Cigarette use (# per day): No Chew tobacco use (# tins/day): No Frequency of alcohol use: None Drug Abuse: None Lives with: Skilled Nursing Family History: Reviewed & Not Pertinent Patient has suicidal ideation: No Patient has homicidal ideation: No - Past Medical History Cardiac Medical History: Reports: Hx Hypertension Pulmonary Medical History: Reports: None Neurological Medical History: Reports: Hx Cerebrovascular Accident Endocrine Medical History: Reports: Hx Diabetes Mellitus Type 2 Renal/ Medical History: Reports: Other - UTIs Malignancy Medical History: Reports: None GI Medical History: Reports: None Musculoskeltal Medical History: Reports Hx Arthritis Psychiatric Medical History: Reports: Hx Dementia Past Surgical History: Reports: Hx Orthopedic Surgery - Cervical and lumbar surgery - Immunizations Immunizations up to date: Yes Hx Diphtheria, Pertussis, Tetanus Vaccination: Yes Hx Pneumococcal Vaccination: 04/23/14 Review of Systems - Review of Systems Constitutional: denies: Chills, Fever EENT: No symptoms reported Cardiovascular: No symptoms reported Respiratory: No symptoms reported Gastrointestinal: No symptoms reported Genitourinary: No symptoms reported Female Genitourinary: No symptoms reported Musculoskeletal: No symptoms reported Skin: No symptoms reported Hematologic/Lymphatic: No symptoms reported Neurological/Psychological: See HPI Physical Exam - Vital signs Vitals: Resp Pulse Ox 15 96 01/16/17 13:28 01/16/17 13:28 Notes: Physical exam: GENERAL: This is an 86-year-old female who is lying in the stretcher, she does have baseline dementia, she does not appear in any distress, she does appear dehydrated. Temperature 98. Rectally6 HEAD: Atraumatic, normocephalic. EYES: Pupils equal round and reactive to light, extraocular movements intact, sclera anicteric, conjunctiva are normal. ENT: TMs normal, nares patent, oropharynx clear without exudates. Dry mucous membranes. NECK: Normal range of motion, supple without lymphadenopathy or JVD. LUNGS: Breath sounds clear to auscultation bilaterally and equal. No wheezes rales or rhonchi. HEART: Regular rate and rhythm without murmurs, rubs or gallops. ABDOMEN: Soft, normoactive bowel sounds. No tenderness to palpation. No guarding, no rebound. No masses appreciated. Rectal: Brown stool, sent for study EXTREMITIES: Normal range of motion, no pitting or edema. No clubbing or cyanosis. NEUROLOGICAL: Cranial nerves II through XII grossly intact. Normal speech, baseline dementia PSYCH: Normal mood, normal affect. SKIN: Warm, Dry, normal turgor, no rashes or lesions noted. Course - Re-evaluation Re-evalutation: 01/16/17 18:42 I spoke to the patient's son states that the patient has had similar episodes in the past which were attributed to UTI. Dr. Boggs was in the ER and had seen the patient earlier. I did discuss the case with him. I have given the patient IV antibiotic while in the ER and I will discharge the patient with an antibiotic for UTI. The patient on repeat exam, is in no distress and is not having any pain. She does have dementia at baseline. Her BUN and creatinine were mildly elevated and she was given some IV fluids in the ER. I spoke to the patient's son about the plan to discharge back to the long term in he is happy with that decision. - Vital Signs Vital signs: Temp Pulse Resp BP Pulse Ox 12 153/74 H 97 01/16/17 17:17 01/16/17 16:01 01/16/17 15:01 - Laboratory Result Diagrams: 01/16/17 15:28 01/16/17 16:39 Laboratory results interpreted by me: 01/16/17 01/16/1701/16/17 15:28 15:28 16:39 RBC 3.42 L Hgb 10.5 L Hct 32.4 L Potassium 5.2 H BUN 29 H Est GFR ( Amer) 59 L Est GFR (Non-Af Amer) 49 L Direct Bilirubin 0.5 H Alkaline Phosphatase 155 H Urine Protein 30 H Urine Blood SMALL H - Diagnostic Test Radiology reviewed: Image reviewed, Reports reviewed - CT shows nothing acute. Chest x-ray is without infiltrates. Pelvis x-ray shows stable hardware in the left hip. Discharge - Discharge Clinical Impression: Altered mental status, UTI Condition: Stable Disposition: HOME, SELF-CARE Additional Instructions: Recommendations: Continue current medicines. Start Cipro tomorrow. Patient was given IV ceftriaxone in the ER. Return to the ER for any concerns that Ms. Mckinley is getting worse. Prescriptions: Ciprofloxacin HCl [Cipro 500 mg Tablet] 500 mg PO BID #20 tablet Referrals: PATRICIA BOGGS MD [Primary Care Provider] - Follow up as needed
[2017-01-16 16:05] LABS: APPEARANCE,URINE SLIGHTLY-CLOUDY; BILIRUBIN,URINE NEGATIVE (NEGATIVE); GLUCOSE, URINE NEGATIVE (NEGATIVE); KETONES,URINE NEGATIVE (NEGATIVE); LEUKOCYTE ESTERASE,URINE NEGATIVE (NEGATIVE); NITRITE,URINE NEGATIVE (NEGATIVE); PROTEIN,URINE 30 mg/dL (NEGATIVE); URINE SPECIFIC GRAVITY 1.014; UROBILINOGEN,URINE NEGATIVE mg/dL (<2.0)
[2017-01-16 16:13] LABS: HEMATOCRIT 32.4 % (36.0-47.0); HEMOGLOBIN 10.5 g/dL (12.0-15.5); HGB HCT DIFFERENCE -0.9; MEAN CORPUSCULAR HEMOGLOBIN 30.7 pg (27.0-33.4); MEAN CORPUSCULAR HGB CONC 32.4 g/dL (32.0-36.0); MEAN CORPUSCULAR VOLUME 95 fl (80-97); RED BLOOD COUNT 3.42 10^6/uL (3.72-5.28)
[2017-01-16 16:26] LABS: BASOPHILS % (MANUAL) 1 % (0-2); EOSINOPHILS % (MANUAL) 3 % (0-6); LYMPHOCYTES % (MANUAL) 24 % (13-45); TOTAL CELLS COUNTED 100
[2017-01-16 16:28] LABS: RBC MORPHOLOGY COMMENT NORMO-CYTIC/CHROMIC
[2017-01-16 17:13] LABS: ALANINE AMINOTRANSFERASE 43 U/L (9-52); ALBUMIN 3.8 g/dL (3.5-5.0); ALKALINE PHOSPHATASE 155 U/L (38-126); ANION GAP 14 (5-19); ASPARTATE AMINO TRANSFERASE 29 U/L (14-36); BILIRUBIN,DIRECT 0.5 mg/dL (0.0-0.4); BILIRUBIN,TOTAL 0.8 mg/dL (0.2-1.3); BLOOD UREA NITROGEN 29 mg/dL (7-20); CALCIUM 9.5 mg/dL (8.4-10.2); CARBON DIOXIDE 23 mmol/L (22-30); CHLORIDE 106 mmol/L (98-107); CREATININE RESULT 1.07 mg/dL (0.52-1.25); GLUCOSE 92 mg/dL (75-110); POTASSIUM 5.2 mmol/L (3.6-5.0); SODIUM 143.4 mmol/L (137-145); TOTAL PROTEIN 7.6 g/dL (6.3-8.2)
--- NOTE | 2017-01-16 17:29 | RADIOLOGY REPORT (SQ) ---
EXAM DESCRIPTION: CHEST SINGLE VIEW COMPLETED DATE/TIME: 01/16/2017 5:13 pm REASON FOR STUDY: altered mental status COMPARISON: 12/24/2015 EXAM PARAMETERS: NUMBER OF VIEWS: One view. TECHNIQUE: Single frontal radiographic view of the chest acquired. RADIATION DOSE: NA LIMITATIONS: None. FINDINGS: LUNGS AND PLEURA: No opacities, masses or pneumothorax. No pleural effusion. MEDIASTINUM AND HILAR STRUCTURES: No masses. Contour normal. HEART AND VASCULAR STRUCTURES: Heart normal in size. Normal vasculature. BONES: No acute findings. HARDWARE: None in the chest. OTHER: No other significant finding. IMPRESSION: NO ACUTE RADIOGRAPHIC FINDING IN THE CHEST. TECHNICAL DOCUMENTATION: JOB ID: [id number]
--- NOTE | 2017-01-16 17:30 | RADIOLOGY REPORT (SQ) ---
EXAM DESCRIPTION: CT HEAD WITHOUT COMPLETED DATE/TIME: 01/16/2017 5:16 pm REASON FOR STUDY: altered mental status COMPARISON: 12/21/2016 TECHNIQUE: Axial images acquired through the brain without intravenous contrast. Images reviewed wi th bone, brain and subdural windows. Images stored on PACS. All CT scanners at this facility use dose modulation, iterative reconstruction, and/or weight based d osing when appropriate to reduce radiation dose to as low as reasonably achievable (ALARA). [facility]: Dose Right [facility]: CareDose [facility]: Dose Right [facility]: Teradose 4D [facility]: [employer] RADIATION DOSE: 64.61 mGy. LIMITATIONS: None. FINDINGS: VENTRICLES: Prominent. CEREBRUM: No masses. No hemorrhage. No midline shift. Areas of low density in the white matter mos t likely due to chronic micro-vascular ischemic change. No evidence for acute infarction. 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 No hemorrhage. No alteration of density. No evidence for acute infarction. EXTRAAXIAL SPACES: Mild age-related involutional change. No fluid collections. No masses. ORBITS AND GLOBE: No intra- or extraconal masses. Normal contour of globe without masses. CALVARIUM: No fracture. PARANASAL SINUSES: No fluid or mucosal thickening. SOFT TISSUES: No mass or hematoma. OTHER: No other significant finding. IMPRESSION: No significant interval change from the previous study. CHRONIC CHANGES OF ATROPHY AND MICROVASCULAR ISCHEMIA. The previously questioned 1 cm mass in the left cerebellar hemisphere is aga in identified and appears unchanged. NO ACUTE PROCESS. TECHNICAL DOCUMENTATION: JOB ID: [id number] Quality ID # [id number]: Final reports with documentation of one or more dose reduction techniques (e.g., Au tomated exposure control, adjustment of the mA and/or kV according to patient size, use of iterative reconstruction technique) 2010 [employer]- All Rights Reserved
--- NOTE | 2017-01-16 17:31 | RADIOLOGY REPORT (SQ) ---
EXAM DESCRIPTION: HIP LEFT AP/LATERAL COMPLETED DATE/TIME: 01/16/2017 5:13 pm REASON FOR STUDY: altered COMPARISON: Intraoperative films dated 12/22/2016, CT pelvis dated 12/21/2016. NUMBER OF VIEWS: Two views. TECHNIQUE: AP pelvis and additional frog-leg view of the left hip. LIMITATIONS: None. FINDINGS: MINERALIZATION: Normal. LEFT HIP: There is a comminuted fracture of the proximal left femur. Internal fixation device is in place. I can't see no significant change in alignment from the intraoperative films. RIGHT HIP: Intact. PUBIS AND ISCHIUM: No fracture. PELVIS: No fracture. SACRUM: No fracture or dislocation. No worrisome bone lesions. LOWER LUMBAR SPINE: No fracture or dislocation. No worrisome bone lesions. No significant disc disea se. SOFT TISSUES: No findings. OTHER: No other significant finding. IMPRESSION: Postsurgical changes in the left hip. No evidence of an acute fracture or dislocation. TECHNICAL DOCUMENTATION: JOB ID: [id number] [employer]- All Rights Reserved
[2017-01-16] MEDS ORDERED: CEFTRIAXONE 1 GM/D5W RTU 50 ML IV ONE (18:19)
[2017-01-16 21:26] VITALS: BP 123/90
== END 2017-01-16 21:05 | disposition home or self-care (01) ==
LOC: ER 13:07
DX: R41.82 Altered mental status, unspecified (principal); N39.0 Urinary tract infection, site not specified; F03.90 Unspecified dementia, unspecified severity, without behavioral disturbance, psychotic disturbance, mood disturbance, and anxiety; I10 Essential (primary) hypertension; Z86.73 Personal history of transient ischemic attack (TIA), and cerebral infarction without residual deficits; Z87.440 Personal history of urinary (tract) infections
CPT/HCPCS: 99285; 96361; 96365; 36415; 85025; 85610; 82272; 80053; 81001; 71010; 73502; 70450; J7040; J0696

== ENCOUNTER 2017-01-22 15:53 | Inpatient (IN) | payer MEDICARE ==
--- NOTE | 2017-01-22 16:09 | ER Document Report ---
ED General - General Stated Complaint: BLOOD PRESSURE ISSUES Time Seen by Provider: 01/22/17 16:03 Mode of Arrival: Medic Information source: Emergency Med Personnel, Outside Facility Records TRAVEL OUTSIDE OF THE [place] IN LAST 30 DAYS: No - HPI Patient complains to provider of: hypotension, decreased responsiveness Onset: This morning Onset/Duration: Gradual Quality of pain: No pain Associated symptoms: Weakness Similar symptoms previously: Yes Recently seen / treated by doctor: No Notes: Patient is an 86-year-old female who [facility] responsiveness and hypotension noted today, she is afebrile, has no complaints at the present time but appears quite lethargic - Related Data Allergies/Adverse Reactions: aspirin Allergy (Verified 01/22/17 16:42) Penicillins Allergy (Verified 01/22/17 16:42) Past Medical History - General Information source: Outside Facility Records - Social History Smoking Status: Never Smoker Family History: Reviewed & Not Pertinent - Past Medical History Cardiac Medical History: Reports: Hx Hypertension Neurological Medical History: Reports: Hx Cerebrovascular Accident Endocrine Medical History: Reports: Hx Diabetes Mellitus Type 2 Musculoskeltal Medical History: Reports Hx Arthritis Psychiatric Medical History: Reports: Hx Dementia Past Surgical History: Reports: Hx Orthopedic Surgery - Cervical and lumbar surgery - Immunizations Immunizations up to date: Yes Hx Diphtheria, Pertussis, Tetanus Vaccination: Yes Hx Pneumococcal Vaccination: 04/23/14 Review of Systems - Review of Systems -: Yes ROS unobtainable due to patient's medical condition Physical Exam - Vital signs Vitals: Resp 12 01/22/17 15:57 Interpretation: Hypotensive - General General appearance: Lethargic In distress: Moderate - HEENT Head: Normocephalic, Atraumatic Eyes: Normal Conjunctiva: Normal Extraocular movements intact: Yes Eyelashes: Normal Pupils: PERRL Mucous membranes: Dry Pharynx: Normal Neck: Normal - Respiratory Respiratory status: No respiratory distress Chest status: Nontender Breath sounds: Normal Chest palpation: Normal - Cardiovascular Rhythm: Regular Heart sounds: Normal auscultation Murmur: No - Abdominal Distension: Distended Tenderness: Tender - Back Back: Normal - Extremities General upper extremity: Normal inspection General lower extremity: Other - Contracted - Neurological [place] Coma Scale Eye Opening: To Voice [place] Coma Scale Verbal: Confused [place] Coma Scale Motor: Obeys Commands [place] Coma Scale Total: 13 - Skin Skin Temperature: Cool Skin Moisture: Dry Skin Color: Pale Course - Re-evaluation Re-evalutation: 01/22/17 17:01 It noted to have urinary tract infection, as well as acute renal failure, likely from dehydration, we will continue to hydrate her, provide antibiotics and admit to IMCU for further evaluation and treatment, patient was discussed with Dr Escoto, who is covering for Dr Hou, who agrees to admit patient - Vital Signs Vital signs: Temp Pulse Resp BP Pulse Ox 97.7 F 12 96/46 L 97 01/22/17 16:00 01/22/17 16:41 01/22/17 16:41 01/22/17 16:41 - Laboratory Result Diagrams: 01/22/17 16:04 01/22/17 16:04 Laboratory results interpreted by me: 01/22/17 01/22/17 01/22/17 16:04 16:04 16:04 WBC 13.0 H RBC 3.22 L Hgb 9.8 L Hct 30.4 L RDW 14.7 H Seg Neutrophils % 81.9 H Lymphocytes % 10.0 L Absolute Neutrophils 10.7 H PT 15.8 H APTT 45.8 H Potassium 5.7 H Carbon Dioxide 19 L BUN 87 H Creatinine 5.00 H Est GFR ( Amer) 10 L Est GFR (Non-Af Amer) 8 L Glucose 116 H Direct Bilirubin 0.5 H Albumin 3.0 L Urine Protein Urine Blood Ur Leukocyte Esterase 01/22/17 16:04 WBC RBC Hgb Hct RDW Seg Neutrophils % Lymphocytes % Absolute Neutrophils PT APTT Potassium Carbon Dioxide BUN Creatinine Est GFR ( Amer) Est GFR (Non-Af Amer) Glucose Direct Bilirubin Albumin Urine Protein 100 H Urine Blood MODERATE H Ur Leukocyte Esterase TRACE H - Diagnostic Test Radiology reviewed: Image reviewed, Reports reviewed - EKG Interpretation by Me EKG shows normal: Sinus rhythm Rate: Normal Rhythm: NSR Critical Care Note - Critical Care Note Total time excluding time spent on procedures (mins): 35 Comments: Patient arrived lethargic and hypotensive, shown to have severe dehydration with urinary tract infection requiring admission to the IMCU Discharge - Discharge Clinical Impression: Dehydration, Acute encephalopathy, Hyperkalemia Urinary tract infection Qualifiers: Urinary tract infection type: site unspecified Hematuria presence: without hematuria Qualified Code(s): N39.0 - Urinary tract infection, site not specified Hypotension Qualifiers: Hypotension type: unspecified hypotension type Qualified Code(s): I95.9 - Hypotension, unspecified Condition: Serious Disposition: ADMITTED INPATIENT Admitting Provider: [facility] Unit Admitted: [facility]
[2017-01-22] MEDS: NORMAL SALINE 1000 ML 1,000 ML IV PRN ×2 (16:17→17:24)
[2017-01-22 16:36] LABS: ABSOLUTE LYMPHOCYTES (AUTO) 1.3 10^3/uL (0.5-4.7); ABSOLUTE NEUT (AUTO) 10.7 10^3/uL (1.7-8.2); AMORPHOUS SEDIMENT,URINE TRACE /HPF; APPEARANCE,URINE SLIGHTLY-CLOUDY; BASOPHILS % (AUTO) 0.3 % (0-2); BILIRUBIN,URINE NEGATIVE (NEGATIVE); EOSINOPHILS % (AUTO) 0.4 % (0-6); GLUCOSE, URINE NEGATIVE (NEGATIVE); HEMATOCRIT 30.4 % (36.0-47.0); HEMOGLOBIN 9.8 g/dL (12.0-15.5); KETONES,URINE NEGATIVE (NEGATIVE); LEUKOCYTE ESTERASE,URINE TRACE (NEGATIVE); MEAN CORPUSCULAR HEMOGLOBIN 30.3 pg (27.0-33.4); MEAN CORPUSCULAR HGB CONC 32.1 g/dL (32.0-36.0); MEAN CORPUSCULAR VOLUME 94 fl (80-97); MONOCYTES % (AUTO) 7.4 % (3-13); NITRITE,URINE NEGATIVE (NEGATIVE); PROTEIN,URINE 100 mg/dL (NEGATIVE); PROTHROMBIN TIME 15.8 SEC (11.4-15.4); RED BLOOD COUNT 3.22 10^6/uL (3.72-5.28); RED CELL DISTRIBUTION WIDTH 14.7 % (11.5-14.0); SEGMENTED NEUTROPHILS % (AUTO) 81.9 % (42-78); URINE SPECIFIC GRAVITY 1.011; UROBILINOGEN,URINE NEGATIVE mg/dL (<2.0)
[2017-01-22 16:37] LABS: PARTIAL THROMBOPLASTIN TIME 45.8 SEC (23.5-35.8)
--- NOTE | 2017-01-22 16:40 | RADIOLOGY REPORT (SQ) ---
EXAM DESCRIPTION: CHEST SINGLE VIEW COMPLETED DATE/TIME: 01/22/2017 4:29 pm REASON FOR STUDY: cough COMPARISON: 01/16/2017 EXAM PARAMETERS: NUMBER OF VIEWS: One view. TECHNIQUE: Single frontal radiographic view of the chest acquired. RADIATION DOSE: NA LIMITATIONS: None. FINDINGS: LUNGS AND PLEURA: No new opacities, masses or pneumothorax. No pleural effusion. MEDIASTINUM AND HILAR STRUCTURES: No masses. Contour normal. HEART AND VASCULAR STRUCTURES: Heart stable in size. Normal vasculature. BONES: No acute findings. HARDWARE: None in the chest. OTHER: No other significant finding. IMPRESSION: NO ACUTE CARDIOPULMONARY PROCESS. NO SIGNIFICANT CHANGE FROM PRIOR STUDY. TECHNICAL DOCUMENTATION: JOB ID: [id number]
[2017-01-22 16:47] LABS: ALANINE AMINOTRANSFERASE 38 U/L (9-52); ALKALINE PHOSPHATASE 106 U/L (38-126); ASPARTATE AMINO TRANSFERASE 25 U/L (14-36); BILIRUBIN,DIRECT 0.5 mg/dL (0.0-0.4); BILIRUBIN,TOTAL 0.6 mg/dL (0.2-1.3); BLOOD UREA NITROGEN 87 mg/dL (7-20); CALCIUM 8.4 mg/dL (8.4-10.2); CARBON DIOXIDE 19 mmol/L (22-30); CHLORIDE 106 mmol/L (98-107); GLUCOSE 116 mg/dL (75-110); LIPASE 110.2 U/L (23-300); POTASSIUM 5.7 mmol/L (3.6-5.0); TOTAL PROTEIN 6.7 g/dL (6.3-8.2)
[2017-01-22 16:54] LABS: ANION GAP 17 (5-19); SODIUM 141.6 mmol/L (137-145)
[2017-01-22] MEDS ORDERED: NORMAL SALINE 1000 ML 1,000 ML IV PRN ×2 (16:58→20:50)
--- NOTE | 2017-01-22 17:08 | EKG REPORT ---
SEVERITY:- BORDERLINE ECG - SINUS RHYTHM BORDERLINE LEFT AXIS DEVIATION BORDERLINE R WAVE PROGRESSION, ANTERIOR LEADS : Confirmed by: Adia Conte 22-Jan-2017 17:06:52
[2017-01-22] MEDS ORDERED: CEFTRIAXONE INJ 1000 MG VIAL IV ONE (17:14)
[2017-01-22 17:57] LABS: VENOUS BLOOD BASE EXCESS -7.6 mmol/L; VENOUS BLOOD PCO2 42.7 mmHg (35-63); VENOUS BLOOD PH 7.27 (7.30-7.42)
[2017-01-22] MEDS ORDERED: ACETAMINOPHEN 325 MG TABLET PO PRN (20:59)
--- NOTE | 2017-01-22 21:21 | PDOC H&P ---
History of Present Illness Admission Date/PCP: 01/22/17 17:19 PATRICIA BOGGS MD History of Present Illness: VICTOR HUGO WHATLEY is a 86 year old female, patient of Dr Boggs and resident at [facility] who was brought to ED by EMS personnel for low blood pressure and decrease responsiveness. Discussion with her primary doctor revealed poor po intake for several days and family deciding on alternative feeding route versus hospice palliative care placement. There was associated gradual generalized weakness. There was no reported associated fever or difficulty with breathing. Her initial evaluation in the ED was remarkable for significant hypotension, uremia, and concern for possible UTI. She received several liters of IV fluid normal saline and had a dose of IV Rocephin. Her comorbidities include HTN, DM type 2, advance dementia, osteoarthritis with chronic pain, history of stroke and cervical as well as lumbar spine surgeries. In view of her clinical assessment and laboratory findings, she will be admitted for further evaluation and management. Past Medical History Cardiac Medical History: Reports: Hypertension Endocrine Medical History: Reports: Diabetes Mellitus Type 2 Musculoskeltal Medical History: Reports: Arthritis Psychiatric Medical History: Reports: Dementia Past Surgical History Past Surgical History: Reports: Orthopedic Surgery - Cervical and lumbar surgery Social History Smoking Status: Never Smoker Frequency of Alcohol Use: None Hx Recreational Drug Use: No Drugs: None Hx Prescription Drug Abuse: No Family History Family History: Reviewed & Not Pertinent Parental Family History Reviewed: Yes Children Family History Reviewed: Yes Sibling(s) Family History Reviewed.: Yes Medication/Allergy Home Medications: Acetaminophen [Tylenol 325 mg Tablet] 650 mg PO Q4HP PRN 01/22/17 Aspirin/Dipyridamole [Aggrenox 25 mg-200 mg Capsule] 1 cap PO Q12 01/22/17 Atorvastatin Calcium [Lipitor 80 mg Tablet] 80 mg PO QHS 01/22/17 Clonazepam [Klonopin] 0.5 mg PO Q12 01/22/17 Donepezil HCl [Aricept] 10 mg PO QHS 01/22/17 Enoxaparin Sodium [Lovenox Inj 40 mg/0.4 ml Disp.syrin] 40 mg SQ ASDIR PRN 01/22 Estrogens,Conjugated [Premarin Vaginal Cream (0.625 mg/gm) 30 gm] 1 gm VG DAILY 01/22/17 Guaifenesin [Siltussin SA] 200 mg PO Q4HP PRN 01/22/17 Loperamide HCl [Imodium A-D] 2 mg PO ASDIR PRN 01/22/17 Losartan Potassium [Cozaar 25 mg Tablet] 25 mg PO DAILY 01/22/17 Memantine HCl [Namenda Xr] 28 mg PO DAILY 01/22/17 Methyl Salicylate/Menth/Camph [Salonpas Patch] 2 patch TOP Q8 01/22/17 Pregabalin [Lyrica 100 mg Capsule] 100 mg PO Q8 01/22/17 Allergies/Adverse Reactions: aspirin Allergy (Verified 01/22/17 16:42) Penicillins Allergy (Verified 01/22/17 16:42) Review of Systems ROS unobtainable: Due to mental status - due to her advance dementia she is not able to meaningfully contribute to her ongoing medical history. Physical Exam Vital Signs: Temp Pulse Resp BP Pulse Ox 98.6 F 88 22 H 129/49 H 88 L 01/22/17 20:15 01/22/17 20:22 01/22/17 20:15 01/22/17 20:15 01/22/17 20:15 General appearance: PRESENT: disheveled, mild distress - expressed back pain, obese Head exam: PRESENT: atraumatic, normocephalic Eye exam: PRESENT: conjunctiva pink, EOMI, PERRLA. ABSENT: scleral icterus Ear exam: PRESENT: normal external ear exam Mouth exam: PRESENT: dry mucosa, neck supple Throat exam: ABSENT: post pharyngeal erythema, tonsillar erythema, tonsillar exudate, tonsillogmegaly, other Neck exam: PRESENT: full ROM. ABSENT: carotid bruit, JVD, lymphadenopathy, thyromegaly Respiratory exam: PRESENT: clear to auscultation maximo, decreased breath sounds - at lung bases Cardiovascular exam: PRESENT: RRR. ABSENT: diastolic murmur, rubs, systolic murmur Vascular exam: PRESENT: normal capillary refill GI/Abdominal exam: PRESENT: normal bowel sounds, soft. ABSENT: distended, guarding, mass, organolmegaly, rebound, tenderness Rectal exam: PRESENT: deferred Extremities exam: ABSENT: pedal edema Musculoskeletal exam: PRESENT: deformity - related to joint involvement with arthritis Neurological exam: PRESENT: altered - related to her baseline dementia. ABSENT : oriented to person, oriented to place, oriented to time, oriented to situation Psychiatric exam: PRESENT: appropriate affect Skin exam: PRESENT: dry, warm, other - ulcer on leg with intact dressing Results Laboratory Results: Reviewed on [employer] and form significant part of my medical decision making in this case. 01/22/17 01/22/17 17:35 17:50 VBG pH 7.27 L VBG pCO2 42.7 VBG HCO3 19.0 L VBG Base Excess -7.6 Lactic Acid 1.6 Impressions: Chest X-Ray 01/22/17 16:04 IMPRESSION: NO ACUTE CARDIOPULMONARY PROCESS. NO SIGNIFICANT CHANGE FROM PRIOR STUDY. Assessment & Plan - Diagnosis (1) SIRS due to infectious process with acute organ dysfunction Is this a current diagnosis for this admission?: YesPlan: See covering admitting physician orders. (2) Dehydration Is this a current diagnosis for this admission?: YesPlan: See covering admitting physician orders. (3) Hypotension Qualifiers: Hypotension type: unspecified hypotension type Qualified Code(s): I95.9 - Hypotension, unspecified Is this a current diagnosis for this admission?: YesPlan: See covering admitting physician orders. (4) Urinary tract infection Qualifiers: Urinary tract infection type: site unspecified Hematuria presence: without hematuria Qualified Code(s): N39.0 - Urinary tract infection, site not specified Is this a current diagnosis for this admission?: YesPlan: See covering admitting physician orders. (5) Dementia Qualifiers: Dementia type: unspecified type Dementia behavioral disturbance: without behavioral disturbance Qualified Code(s): F03.90 - Unspecified dementia without behavioral disturbance Is this a current diagnosis for this admission?: YesPlan: See covering admitting physician orders. - Time Time Spent: 50 to 70 Minutes Medications reviewed and adjusted accordingly: Yes Anticipated discharge: SNF Within: Other - Inpatient Certification Based on my medical assessment, after consideration of the patient's comorbidities, presenting symptoms, or acuity I expect that the services needed warrant INPATIENT care.: Yes I certify that my determination is in accordance with my understanding of Medicare's requirements for reasonable and necessary INPATIENT services [42 CFR 412.3e].: Yes Medical Necessity: Failure to Improve With Outpatient Therapy, Need Close Monitoring Due to Risk of Patient Decompensation, Need For IV Fluids, Need For Continuous Telemetry Monitoring, Need for IV Antibiotics, Risk of Complication if Not Cared For in Hospital Post Hospital Care: D/C or Transfer Summary - Plan Summary Plan Summary: See covering admitting physician orders.
[2017-01-22] MEDS ORDERED: [UNRECOGNIZED DRUG - OTHER] TOP SCH (22:00)
[2017-01-22] MEDS ORDERED: (PENDING PHARMACY ID) (Donepezil Hcl [Aricept] 10 MG) PO SCH (22:00)
[2017-01-22] MEDS ORDERED: (PENDING PHARMACY ID) (Clonazepam [Klonopin] 0.5 MG) PO SCH (22:00)
[2017-01-22 22:17] LABS: PROTHROMBIN TIME 15.1 SEC (11.4-15.4)
[2017-01-22 22:18] LABS: PARTIAL THROMBOPLASTIN TIME 44.5 SEC (23.5-35.8)
[2017-01-22] MEDS: DONEPEZIL HCL 5 MG TABLET PO SCH (22:29)
[2017-01-22] MEDS: CLONAZEPAM 1 MG TABLET PO SCH (22:29)
[2017-01-22] MEDS: HEPARIN SOD (PORCINE) 5,000 UNIT/ML 1 ML SYRINGE SUBCUT SCH (22:31)
[2017-01-23] MEDS ORDERED: NORMAL SALINE 500 ML IV ONE (04:15)
[2017-01-23] MEDS: HEPARIN SOD (PORCINE) 5,000 UNIT/ML 1 ML SYRINGE SUBCUT SCH ×3 (05:34→22:15)
[2017-01-23] MEDS: LANSOPRAZOLE 30 MG TAB.RAP.DR PO SCH (05:34)
[2017-01-23 06:03] LABS: ABSOLUTE EOSINOPHILS # (AUTO) 0.1 10^3/uL (0.0-0.6); ABSOLUTE LYMPHOCYTES (AUTO) 1.4 10^3/uL (0.5-4.7); ABSOLUTE NEUT (AUTO) 8.2 10^3/uL (1.7-8.2); BASOPHILS % (AUTO) 0.4 % (0-2); HEMATOCRIT 26.1 % (36.0-47.0); HEMOGLOBIN 8.4 g/dL (12.0-15.5); HGB HCT DIFFERENCE -0.9; LYMPHOCYTES % (AUTO) 12.7 % (13-45); MEAN CORPUSCULAR HEMOGLOBIN 30.6 pg (27.0-33.4); MEAN CORPUSCULAR HGB CONC 32.1 g/dL (32.0-36.0); MEAN CORPUSCULAR VOLUME 95 fl (80-97); MONOCYTES % (AUTO) 9.1 % (3-13); RED BLOOD COUNT 2.74 10^6/uL (3.72-5.28); RED CELL DISTRIBUTION WIDTH 14.8 % (11.5-14.0); SEGMENTED NEUTROPHILS % (AUTO) 76.8 % (42-78); WHITE BLOOD COUNT 10.7 10^3/uL (4.0-10.5)
[2017-01-23 06:19] LABS: ALANINE AMINOTRANSFERASE 28 U/L (9-52); ALBUMIN 2.6 g/dL (3.5-5.0); ALKALINE PHOSPHATASE 86 U/L (38-126); ANION GAP 12 (5-19); ASPARTATE AMINO TRANSFERASE 21 U/L (14-36); BILIRUBIN,DIRECT 0.3 mg/dL (0.0-0.4); BILIRUBIN,TOTAL 0.3 mg/dL (0.2-1.3); BLOOD UREA NITROGEN 75 mg/dL (7-20); CARBON DIOXIDE 19 mmol/L (22-30); CHLORIDE 117 mmol/L (98-107); CREATININE RESULT 4.15 mg/dL (0.52-1.25); GLUCOSE 104 mg/dL (75-110); POTASSIUM 5.1 mmol/L (3.6-5.0); SODIUM 148.1 mmol/L (137-145)
[2017-01-23] MEDS: CEFTRIAXONE 1 GM/D5W RTU 50 ML IV SCH (09:49)
[2017-01-23] MEDS: CLONAZEPAM 1 MG TABLET PO SCH ×2 (09:59→22:29)
[2017-01-23] MEDS ORDERED: (PENDING PHARMACY ID) (Memantine Hcl [Namenda Xr] 28 MG) PO SCH (10:00)
--- NOTE | 2017-01-23 11:24 | PDOC PROGRESS REPORT ---
Subjective Progress Note for:: 01/23/17 Subjective:: Patient is more awake this morning but at baseline dementia. P.O intake remain a challenge. No reported fever, difficulty with breathing or diarrhea, She continue to demonstrate low blood pressure but remain on IV fluid support. Physical Exam Vital Signs: Temp Pulse Resp BP Pulse Ox 98.3 F 63 16 99/46 L 100 01/23/17 07:56 01/23/17 07:56 01/23/17 07:56 01/23/17 07:56 01/23/17 03:40 Intake & Output 01/22/17 01/23/17 01/24/17 06:59 06:59 06:59 Intake Total 1485 Balance 1485 Weight 67.1 kg Physical Exam: General appearance: PRESENT: disheveled, mild distress - expressed back pain, obese Head exam: PRESENT: atraumatic, normocephalic Eye exam: PRESENT: conjunctiva pink, EOMI, PERRLA. ABSENT: scleral icterus Mouth exam: PRESENT: dry mucosa, neck supple Respiratory exam: PRESENT: clear to auscultation maximo, decreased breath sounds - at lung bases Cardiovascular exam: PRESENT: RRR. ABSENT: diastolic murmur, rubs, systolic murmur GI/Abdominal exam: PRESENT: normal bowel sounds, soft. ABSENT: distended, guarding, mass, organomegaly, rebound, tenderness Extremities exam: ABSENT: pedal edema Musculoskeletal exam: PRESENT: deformity - related to joint involvement with arthritis Neurological exam: PRESENT: altered - related to her baseline dementia. ABSENT : oriented to person, oriented to place, oriented to time, oriented to situation Psychiatric exam: PRESENT: appropriate affect Skin exam: PRESENT: dry, warm, other - ulcer on leg with intact dressing Results Laboratory Results: 01/23/17 05:39 01/23/17 05:39 01/23/17 01/23/17 05:39 05:39 WBC 10.7 H RBC 2.74 L Hgb 8.4 L Hct 26.1 L MCV 95 MCH 30.6 MCHC 32.1 RDW 14.8 H Plt Count 145 L Seg Neutrophils % 76.8 Lymphocytes % 12.7 L Monocytes % 9.1 Eosinophils % 1.0 Basophils % 0.4 Absolute Neutrophils 8.2 Absolute Lymphocytes 1.4 Absolute Monocytes 1.0 Absolute Eosinophils 0.1 Absolute Basophils 0.0 Sodium 148.1 H Potassium 5.1 H Chloride 117 H Carbon Dioxide 19 L Anion Gap 12 BUN 75 H Creatinine 4.15 H Est GFR ( Amer) 12 L Est GFR (Non-Af Amer) 10 L Glucose 104 Calcium 8.0 L Total Bilirubin 0.3 AST 21 ALT 28 Alkaline Phosphatase 86 Total Protein 6.0 L Albumin 2.6 L Impressions: Chest X-Ray 01/22/17 16:04 IMPRESSION: NO ACUTE CARDIOPULMONARY PROCESS. NO SIGNIFICANT CHANGE FROM PRIOR STUDY. Assessment & Plan - Diagnosis (1) SIRS due to infectious process with acute organ dysfunction Is this a current diagnosis for this admission?: YesPlan: See covering attending physician orders. (2) Dehydration Is this a current diagnosis for this admission?: YesPlan: See covering attending physician orders. Improving renal indices. Continue to monitor her BUN and creatinine level. (3) Hypotension Qualifiers: Hypotension type: unspecified hypotension type Qualified Code(s): I95.9 - Hypotension, unspecified Is this a current diagnosis for this admission?: YesPlan: See attending physician orders. Continue IV fluid support. Decrease Clonazepam to 0.25 mg p.o [id number] with intent to taper off this medication. (4) Urinary tract infection Qualifiers: Urinary tract infection type: site unspecified Hematuria presence: without hematuria Qualified Code(s): N39.0 - Urinary tract infection, site not specified Is this a current diagnosis for this admission?: YesPlan: See covering attending physician orders. She will continue on IV Rocephin coverage. Follow up on culture results. (5) Dementia Qualifiers: Dementia type: unspecified type Dementia behavioral disturbance: without behavioral disturbance Qualified Code(s): F03.90 - Unspecified dementia without behavioral disturbance Is this a current diagnosis for this admission?: YesPlan: See covering attending physician orders. - Time Time Spent with patient: 25-34 minutes Medications reviewed and adjusted accordingly: Yes Anticipated discharge: SNF Within: Other - Inpatient Certification Based on my medical assessment, after consideration of the patient's comorbidities, presenting symptoms, or acuity I expect that the services needed warrant INPATIENT care.: Yes I certify that my determination is in accordance with my understanding of Medicare's requirements for reasonable and necessary INPATIENT services [42 CFR 412.3e].: Yes Medical Necessity: Need Close Monitoring Due to Risk of Patient Decompensation, Need For IV Fluids, Need For Continuous Telemetry Monitoring, Need for IV Antibiotics, Risk of Complication if Not Cared For in Hospital Post Hospital Care: D/C or Transfer Summary - Plan Summary Plan Summary: See covering attending physician orders.
[2017-01-23] MEDS: DONEPEZIL HCL 5 MG TABLET PO SCH (22:29)
[2017-01-24] MEDS: HEPARIN SOD (PORCINE) 5,000 UNIT/ML 1 ML SYRINGE SUBCUT SCH ×3 (05:38→22:38)
[2017-01-24] MEDS: LANSOPRAZOLE 30 MG TAB.RAP.DR PO SCH (05:38)
[2017-01-24 05:45] LABS: ABSOLUTE EOSINOPHILS # (AUTO) 0.1 10^3/uL (0.0-0.6); ABSOLUTE LYMPHOCYTES (AUTO) 1.5 10^3/uL (0.5-4.7); ABSOLUTE MONOCYTES (AUTO) 0.8 10^3/uL (0.1-1.4); BASOPHILS % (AUTO) 0.4 % (0-2); EOSINOPHILS % (AUTO) 1.6 % (0-6); HEMATOCRIT 31.1 % (36.0-47.0); HGB HCT DIFFERENCE -1.1; LYMPHOCYTES % (AUTO) 15.8 % (13-45); MEAN CORPUSCULAR HGB CONC 32.1 g/dL (32.0-36.0); MEAN CORPUSCULAR VOLUME 97 fl (80-97); MONOCYTES % (AUTO) 8.3 % (3-13); RED BLOOD COUNT 3.22 10^6/uL (3.72-5.28); RED CELL DISTRIBUTION WIDTH 15.1 % (11.5-14.0); SEGMENTED NEUTROPHILS % (AUTO) 73.9 % (42-78); WHITE BLOOD COUNT 9.5 10^3/uL (4.0-10.5)
[2017-01-24 05:57] LABS: ALANINE AMINOTRANSFERASE 33 U/L (9-52); ALBUMIN 3.2 g/dL (3.5-5.0); ALKALINE PHOSPHATASE 107 U/L (38-126); ANION GAP 16 (5-19); ASPARTATE AMINO TRANSFERASE 29 U/L (14-36); BILIRUBIN,DIRECT 0.3 mg/dL (0.0-0.4); BILIRUBIN,TOTAL 0.3 mg/dL (0.2-1.3); BLOOD UREA NITROGEN 71 mg/dL (7-20); CALCIUM 8.6 mg/dL (8.4-10.2); CARBON DIOXIDE 18 mmol/L (22-30); CHLORIDE 119 mmol/L (98-107); CREATININE RESULT 3.43 mg/dL (0.52-1.25); GLUCOSE 86 mg/dL (75-110); POTASSIUM 4.9 mmol/L (3.6-5.0); TOTAL PROTEIN 7.1 g/dL (6.3-8.2)
[2017-01-24] MEDS: CEFTRIAXONE 1 GM/D5W RTU 50 ML IV SCH (09:38)
[2017-01-24] MEDS: CLONAZEPAM 1 MG TABLET PO SCH ×2 (09:38→23:04)
--- NOTE | 2017-01-24 09:49 | EKG REPORT ---
SEVERITY:- ABNORMAL ECG - SINUS RHYTHM WITH FREQUENT APCs NONSPECIFIC IVCD WITH LAD BORDERLINE R WAVE PROGRESSION, ANTERIOR LEADS : Confirmed by: Adia Conte 24-Jan-2017 09:49:21
--- NOTE | 2017-01-24 10:54 | PDOC PROGRESS REPORT ---
Subjective Progress Note for:: 01/24/17 Subjective:: Patient is more awake this morning and tolerated some peaches for breakfast with reported coughing after drinking thin liquid. No reported fever, difficulty with breathing or diarrhea, She continue to demonstrate low blood pressure but remain on IV fluid support. Physical Exam Vital Signs: Temp Pulse Resp BP Pulse Ox 97.5 F 66 16 116/43 L 87 L 01/24/17 08:04 01/24/17 08:04 01/24/17 08:04 01/24/17 08:04 01/24/17 08:04 Intake & Output 01/23/17 01/24/17 01/25/17 06:59 06:59 06:59 Intake Total 1485 2400 Balance 1485 2400 Weight 67.1 kg 70.2 kg Physical Exam: General appearance: PRESENT: disheveled, mild distress - expressed back pain, obese Head exam: PRESENT: atraumatic, normocephalic Eye exam: PRESENT: conjunctiva pink, EOMI, PERRLA. ABSENT: scleral icterus Mouth exam: PRESENT: dry mucosa, neck supple Respiratory exam: PRESENT: clear to auscultation maximo, decreased breath sounds - at lung bases Cardiovascular exam: PRESENT: RRR. ABSENT: diastolic murmur, rubs, systolic murmur GI/Abdominal exam: PRESENT: normal bowel sounds, soft. ABSENT: distended, guarding, mass, organomegaly, rebound, tenderness Extremities exam: ABSENT: pedal edema Musculoskeletal exam: PRESENT: deformity - related to joint involvement with arthritis Neurological exam: PRESENT: altered - related to her baseline dementia. ABSENT : oriented to person, oriented to place, oriented to time, oriented to situation Psychiatric exam: PRESENT: appropriate affect Skin exam: PRESENT: dry, warm, other - ulcer on leg with intact dressing. Rash in groin region suggestive of skin yeast infection Results Laboratory Results: 01/24/17 05:00 01/24/17 05:00 01/24/17 01/24/17 05:00 05:00 WBC 9.5 RBC 3.22 L Hgb 10.0 L Hct 31.1 L MCV 97 MCH 31.0 MCHC 32.1 RDW 15.1 H Plt Count 161 Seg Neutrophils % 73.9 Lymphocytes % 15.8 Monocytes % 8.3 Eosinophils % 1.6 Basophils % 0.4 Absolute Neutrophils 7.0 Absolute Lymphocytes 1.5 Absolute Monocytes 0.8 Absolute Eosinophils 0.1 Absolute Basophils 0.0 Sodium 153.0 H Potassium 4.9 Chloride 119 H Carbon Dioxide 18 L Anion Gap 16 BUN 71 H Creatinine 3.43 H Est GFR ( Amer) 15 L Est GFR (Non-Af Amer) 13 L Glucose 86 Calcium 8.6 Total Bilirubin 0.3 AST 29 ALT 33 Alkaline Phosphatase 107 Total Protein 7.1 Albumin 3.2 L Impressions: Chest X-Ray 01/22/17 16:04 IMPRESSION: NO ACUTE CARDIOPULMONARY PROCESS. NO SIGNIFICANT CHANGE FROM PRIOR STUDY. Assessment & Plan - Diagnosis (1) SIRS due to infectious process with acute organ dysfunction Is this a current diagnosis for this admission?: Yes (2) Dehydration Is this a current diagnosis for this admission?: Yes (3) Hypotension Qualifiers: Hypotension type: unspecified hypotension type Qualified Code(s): I95.9 - Hypotension, unspecified Is this a current diagnosis for this admission?: Yes (4) Urinary tract infection Qualifiers: Urinary tract infection type: site unspecified Hematuria presence: without hematuria Qualified Code(s): N39.0 - Urinary tract infection, site not specified Is this a current diagnosis for this admission?: Yes (5) Dementia Qualifiers: Dementia type: unspecified type Dementia behavioral disturbance: without behavioral disturbance Qualified Code(s): F03.90 - Unspecified dementia without behavioral disturbance Is this a current diagnosis for this admission?: Yes (6) Yeast infection of the skin Is this a current diagnosis for this admission?: YesPlan: See covering attending physician orders. - Time Time Spent with patient: 25-34 minutes Medications reviewed and adjusted accordingly: Yes Anticipated discharge: SNF Within: Other - Inpatient Certification Based on my medical assessment, after consideration of the patient's comorbidities, presenting symptoms, or acuity I expect that the services needed warrant INPATIENT care.: Yes I certify that my determination is in accordance with my understanding of Medicare's requirements for reasonable and necessary INPATIENT services [42 CFR 412.3e].: Yes Medical Necessity: Need Close Monitoring Due to Risk of Patient Decompensation, Need For IV Fluids, Need For Continuous Telemetry Monitoring, Need for IV Antibiotics, Risk of Complication if Not Cared For in Hospital Post Hospital Care: D/C or Transfer Summary - Plan Summary Plan Summary: See covering attending physician orders.
[2017-01-24] MEDS: DEXTROSE 5%-1/2 NORMAL SALINE 1,000 ML IV PRN ×2 (13:01→22:51)
[2017-01-24] MEDS ORDERED: GLUCAGON,HUMAN RECOMB 1 MG INJ IM PRN (15:32)
[2017-01-24] MEDS ORDERED: INSULIN LISPRO 100 UNIT/ML 3 ML VIAL SUBCUT PRN (15:32)
[2017-01-24] MEDS ORDERED: DEXTROSE 40% GEL 15 GM TUBE X 2 PO PRN (15:32)
[2017-01-24] MEDS ORDERED: DEXTROSE 50%-WATER SYRINGE 25 GM/50 ML DOSE IV PRN (15:32)
[2017-01-24] MEDS ORDERED: DEXTROSE 40% GEL 15 GM TUBE PO PRN (15:32)
[2017-01-24] MEDS ORDERED: DEXTROSE 50%-WATER SYRINGE 12.5 GM/25 ML DOSE IV PRN (15:32)
[2017-01-24] MEDS ORDERED: NYSTATIN TOPICAL POWDER 15 GM TP PRN (15:33)
[2017-01-24] MEDS: DONEPEZIL HCL 5 MG TABLET PO SCH (22:43)
[2017-01-25] MEDS: HEPARIN SOD (PORCINE) 5,000 UNIT/ML 1 ML SYRINGE SUBCUT SCH ×3 (05:35→21:14)
[2017-01-25] MEDS: LANSOPRAZOLE 30 MG TAB.RAP.DR PO SCH (05:35)
[2017-01-25] MEDS: CEFTRIAXONE 1 GM/D5W RTU 50 ML IV SCH (10:34)
[2017-01-25] MEDS: CLONAZEPAM 1 MG TABLET PO SCH ×2 (10:35→21:14)
--- NOTE | 2017-01-25 19:47 | PDOC PROGRESS REPORT ---
Subjective Progress Note for:: 01/25/17 Subjective:: He was admitted because of hypotension, UTI, dehydration ,she was seen by the bedside . Physical Exam Vital Signs: Temp Pulse Resp BP Pulse Ox 98.0 F 61 17 120/49 L 100 01/25/17 11:23 01/25/17 14:00 01/25/17 11:23 01/25/17 11:23 01/25/17 07:32 Intake & Output 01/24/17 01/25/17 01/26/17 06:59 06:59 06:59 Intake Total 2400 2500 480 Balance 2400 2500 480 Weight 70.2 kg 70.5 kg General appearance: PRESENT: no acute distress Eye exam: PRESENT: PERRLA Respiratory exam: PRESENT: clear to auscultation maximo Cardiovascular exam: PRESENT: +S1, +S2 GI/Abdominal exam: PRESENT: soft Neurological exam: PRESENT: alert Results Laboratory Results: 01/24/17 05:00 01/24/17 05:00 Impressions: Chest X-Ray 01/22/17 16:04 IMPRESSION: NO ACUTE CARDIOPULMONARY PROCESS. NO SIGNIFICANT CHANGE FROM PRIOR STUDY. Assessment & Plan - Diagnosis (1) Hypernatremia Is this a current diagnosis for this admission?: Yes (2) Hypotension Qualifiers: Hypotension type: unspecified hypotension type Qualified Code(s): I95.9 - Hypotension, unspecified Is this a current diagnosis for this admission?: Yes (3) SIRS due to infectious process with acute organ dysfunction Is this a current diagnosis for this admission?: Yes (4) Urinary tract infection Qualifiers: Urinary tract infection type: site unspecified Hematuria presence: without hematuria Qualified Code(s): N39.0 - Urinary tract infection, site not specified Is this a current diagnosis for this admission?: Yes (5) Yeast infection of the skin Is this a current diagnosis for this admission?: Yes (6) Dementia Qualifiers: Dementia type: unspecified type Dementia behavioral disturbance: without behavioral disturbance Qualified Code(s): F03.90 - Unspecified dementia without behavioral disturbance Is this a current diagnosis for this admission?: Yes - Plan Summary Plan Summary: Change IV to 5% dextrose, continue IV antibiotic and other treatment
[2017-01-25] MEDS: DONEPEZIL HCL 5 MG TABLET PO SCH (21:14)
[2017-01-25] MEDS: DEXTROSE 5%-WATER 1000 ML 1,000 ML IV PRN (21:16)
[2017-01-26] MEDS: HEPARIN SOD (PORCINE) 5,000 UNIT/ML 1 ML SYRINGE SUBCUT SCH ×3 (06:10→22:59)
[2017-01-26] MEDS: LANSOPRAZOLE 30 MG TAB.RAP.DR PO SCH (06:10)
[2017-01-26] MEDS: CLONAZEPAM 1 MG TABLET PO SCH ×2 (10:24→22:59)
[2017-01-26] MEDS: DEXTROSE 5%-WATER 1000 ML 1,000 ML IV PRN (19:19)
--- NOTE | 2017-01-26 20:22 | PDOC PROGRESS REPORT ---
Subjective Progress Note for:: 01/26/17 Subjective:: She was seen by the bedside, no new complaints today Physical Exam Vital Signs: Temp Pulse Resp BP Pulse Ox 97.1 F 70 18 134/46 H 100 01/26/17 16:48 01/26/17 16:48 01/26/17 16:48 01/26/17 16:48 01/26/17 16:48 Intake & Output 01/25/17 01/26/17 01/27/17 06:59 06:59 06:59 Intake Total 2500 1685 1000 Balance 2500 1685 1000 Weight 70.5 kg General appearance: PRESENT: no acute distress Eye exam: PRESENT: PERRLA Respiratory exam: PRESENT: clear to auscultation maximo Cardiovascular exam: PRESENT: +S1, +S2 Results Laboratory Results: 01/24/17 05:00 01/24/17 05:00 Impressions: Chest X-Ray 01/22/17 16:04 IMPRESSION: NO ACUTE CARDIOPULMONARY PROCESS. NO SIGNIFICANT CHANGE FROM PRIOR STUDY. Assessment & Plan - Diagnosis (1) Hypernatremia Is this a current diagnosis for this admission?: Yes (2) Hypotension Qualifiers: Hypotension type: unspecified hypotension type Qualified Code(s): I95.9 - Hypotension, unspecified Is this a current diagnosis for this admission?: Yes (3) SIRS due to infectious process with acute organ dysfunction Is this a current diagnosis for this admission?: Yes (4) Urinary tract infection Qualifiers: Urinary tract infection type: site unspecified Hematuria presence: without hematuria Qualified Code(s): N39.0 - Urinary tract infection, site not specified Is this a current diagnosis for this admission?: Yes (5) Yeast infection of the skin Is this a current diagnosis for this admission?: Yes (6) Dementia Qualifiers: Dementia type: unspecified type Dementia behavioral disturbance: without behavioral disturbance Qualified Code(s): F03.90 - Unspecified dementia without behavioral disturbance Is this a current diagnosis for this admission?: Yes
[2017-01-26] MEDS: DONEPEZIL HCL 5 MG TABLET PO SCH (22:58)
[2017-01-27] MEDS: DEXTROSE 5%-WATER 1000 ML 1,000 ML IV PRN (04:34)
[2017-01-27] MEDS: LANSOPRAZOLE 30 MG TAB.RAP.DR PO SCH (06:32)
[2017-01-27] MEDS: HEPARIN SOD (PORCINE) 5,000 UNIT/ML 1 ML SYRINGE SUBCUT SCH ×3 (06:32→22:57)
[2017-01-27 10:06] LABS: HEMATOCRIT 27.9 % (36.0-47.0); HEMOGLOBIN 8.9 g/dL (12.0-15.5); HGB HCT DIFFERENCE -1.2; MEAN CORPUSCULAR HEMOGLOBIN 30.2 pg (27.0-33.4); MEAN CORPUSCULAR HGB CONC 32.1 g/dL (32.0-36.0); MEAN CORPUSCULAR VOLUME 94 fl (80-97); RED BLOOD COUNT 2.96 10^6/uL (3.72-5.28); RED CELL DISTRIBUTION WIDTH 14.5 % (11.5-14.0); WHITE BLOOD COUNT 7.8 10^3/uL (4.0-10.5)
[2017-01-27] MEDS: CLONAZEPAM 1 MG TABLET PO SCH ×2 (10:19→23:04)
[2017-01-27 10:35] LABS: ANION GAP 12 (5-19); BLOOD UREA NITROGEN 26 mg/dL (7-20); CALCIUM 8.4 mg/dL (8.4-10.2); CARBON DIOXIDE 21 mmol/L (22-30); CHLORIDE 111 mmol/L (98-107); GLUCOSE 104 mg/dL (75-110); POTASSIUM 3.4 mmol/L (3.6-5.0); SODIUM 144.3 mmol/L (137-145)
--- NOTE | 2017-01-27 18:56 | PDOC PROGRESS REPORT ---
Subjective Progress Note for:: 01/27/17 Subjective:: She was seen by the bedside, she has epistasis, she is still not eating very much. Physical Exam Vital Signs: Temp Pulse Resp BP Pulse Ox 98.0 F 72 18 137/60 H 90 L 01/27/17 16:19 01/27/17 16:19 01/27/17 16:19 01/27/17 16:19 01/27/17 16:19 Intake & Output 01/26/17 01/27/17 01/28/17 06:59 06:59 06:59 Intake Total 1685 2220 1000 Balance 1685 2220 1000 Weight 70.5 kg General appearance: PRESENT: no acute distress Eye exam: PRESENT: PERRLA Respiratory exam: PRESENT: clear to auscultation maximo Cardiovascular exam: PRESENT: +S1, +S2 Neurological exam: PRESENT: alert Results Laboratory Results: 01/27/17 08:44 01/27/17 08:44 01/27/17 01/27/17 08:44 08:44 WBC 7.8 RBC 2.96 L Hgb 8.9 L Hct 27.9 L MCV 94 MCH 30.2 MCHC 32.1 RDW 14.5 H Plt Count 143 L Sodium 144.3 Potassium 3.4 L Chloride 111 H Carbon Dioxide 21 L Anion Gap 12 BUN 26 H Creatinine 1.50 H Est GFR ( Amer) 40 L Est GFR (Non-Af Amer) 33 L Glucose 104 Calcium 8.4 Impressions: Chest X-Ray 01/22/17 16:04 IMPRESSION: NO ACUTE CARDIOPULMONARY PROCESS. NO SIGNIFICANT CHANGE FROM PRIOR STUDY. Assessment & Plan - Diagnosis (1) Hypernatremia Is this a current diagnosis for this admission?: Yes (2) Hypotension Qualifiers: Hypotension type: unspecified hypotension type Qualified Code(s): I95.9 - Hypotension, unspecified Is this a current diagnosis for this admission?: Yes (3) SIRS due to infectious process with acute organ dysfunction Is this a current diagnosis for this admission?: Yes (4) Urinary tract infection Qualifiers: Urinary tract infection type: site unspecified Hematuria presence: without hematuria Qualified Code(s): N39.0 - Urinary tract infection, site not specified Is this a current diagnosis for this admission?: Yes (5) Yeast infection of the skin Is this a current diagnosis for this admission?: Yes (6) Dementia Qualifiers: Dementia type: unspecified type Dementia behavioral disturbance: without behavioral disturbance Qualified Code(s): F03.90 - Unspecified dementia without behavioral disturbance Is this a current diagnosis for this admission?: Yes
[2017-01-27] MEDS ORDERED: POTASSIUM CHLORIDE 10 MEQ TABLET.SA PO ONE (19:30)
--- NOTE | 2017-01-27 20:05 | RADIOLOGY REPORT (SQ) ---
EXAM DESCRIPTION: CHEST SINGLE VIEW COMPLETED DATE/TIME: 01/27/2017 7:55 pm REASON FOR STUDY: shortness of breath COMPARISON: 01/22/2017 EXAM PARAMETERS: NUMBER OF VIEWS: One view. TECHNIQUE: Single frontal radiographic view of the chest acquired. RADIATION DOSE: NA LIMITATIONS: None. FINDINGS: LUNGS AND PLEURA: No acute opacities, masses or pneumothorax. No pleural effusion. MEDIASTINUM AND HILAR STRUCTURES: Stable. HEART AND VASCULAR STRUCTURES: Stable. BONES: No acute findings. HARDWARE: None in the chest. OTHER: No other significant finding. IMPRESSION: NO ACUTE RADIOGRAPHIC FINDING IN THE CHEST. TECHNICAL DOCUMENTATION: JOB ID: [id number]
[2017-01-27] MEDS: DONEPEZIL HCL 5 MG TABLET PO SCH (23:03)
[2017-01-28] MEDS: HEPARIN SOD (PORCINE) 5,000 UNIT/ML 1 ML SYRINGE SUBCUT SCH ×3 (05:58→22:02)
[2017-01-28] MEDS: LANSOPRAZOLE 30 MG TAB.RAP.DR PO SCH (06:02)
[2017-01-28] MEDS: DEXTROSE 5%-WATER 1000 ML 1,000 ML IV PRN (06:03)
[2017-01-28] MEDS: CLONAZEPAM 1 MG TABLET PO SCH ×2 (09:23→22:03)
--- NOTE | 2017-01-28 19:02 | PDOC PROGRESS REPORT ---
Subjective Progress Note for:: 01/28/17 Subjective:: Patient food intake is still minimal, I had a long discussion with his son she may need a PEG tube, she has advanced dementia. The son will discus with other members of the family and get back to us what options they prefer Physical Exam Vital Signs: Temp Pulse Resp BP Pulse Ox 98.6 F 55 L 19 131/56 H 97 01/28/17 15:35 01/28/17 15:35 01/28/17 15:35 01/28/17 15:35 01/28/17 15:35 Intake & Output 01/27/17 01/28/17 01/29/17 06:59 06:59 06:59 Intake Total 2220 2388 1550 Balance 2220 2388 1550 Weight 70.5 kg 69.9 kg 69.9 kg General appearance: PRESENT: no acute distress Eye exam: PRESENT: PERRLA Respiratory exam: PRESENT: rhonchi Cardiovascular exam: PRESENT: +S1, +S2 GI/Abdominal exam: PRESENT: soft Neurological exam: PRESENT: alert, CN II-XII grossly intact Results Laboratory Results: 01/27/17 08:44 01/27/17 08:44 Impressions: Chest X-Ray 01/27/17 00:00 IMPRESSION: NO ACUTE RADIOGRAPHIC FINDING IN THE CHEST. Assessment & Plan - Diagnosis (1) Hypernatremia Is this a current diagnosis for this admission?: Yes (2) Hypotension Qualifiers: Hypotension type: unspecified hypotension type Qualified Code(s): I95.9 - Hypotension, unspecified Is this a current diagnosis for this admission?: Yes (3) SIRS due to infectious process with acute organ dysfunction Is this a current diagnosis for this admission?: Yes (4) Urinary tract infection Qualifiers: Urinary tract infection type: site unspecified Hematuria presence: without hematuria Qualified Code(s): N39.0 - Urinary tract infection, site not specified Is this a current diagnosis for this admission?: Yes (5) Yeast infection of the skin Is this a current diagnosis for this admission?: Yes (6) Dementia Qualifiers: Dementia type: unspecified type Dementia behavioral disturbance: without behavioral disturbance Qualified Code(s): F03.90 - Unspecified dementia without behavioral disturbance Is this a current diagnosis for this admission?: Yes
[2017-01-28 19:24] LABS: ABSOLUTE EOSINOPHILS # (AUTO) 0.3 10^3/uL (0.0-0.6); ABSOLUTE LYMPHOCYTES (AUTO) 1.7 10^3/uL (0.5-4.7); ABSOLUTE MONOCYTES (AUTO) 0.7 10^3/uL (0.1-1.4); ABSOLUTE NEUT (AUTO) 4.5 10^3/uL (1.7-8.2); BASOPHILS % (AUTO) 0.4 % (0-2); EOSINOPHILS % (AUTO) 3.7 % (0-6); HEMATOCRIT 27.3 % (36.0-47.0); HEMOGLOBIN 9.1 g/dL (12.0-15.5); LYMPHOCYTES % (AUTO) 23.4 % (13-45); MEAN CORPUSCULAR HEMOGLOBIN 30.3 pg (27.0-33.4); MEAN CORPUSCULAR HGB CONC 33.3 g/dL (32.0-36.0); MEAN CORPUSCULAR VOLUME 91 fl (80-97); MONOCYTES % (AUTO) 9.9 % (3-13); RED CELL DISTRIBUTION WIDTH 14.2 % (11.5-14.0); SEGMENTED NEUTROPHILS % (AUTO) 62.6 % (42-78); WHITE BLOOD COUNT 7.2 10^3/uL (4.0-10.5)
[2017-01-28 19:54] LABS: ALANINE AMINOTRANSFERASE 53 U/L (9-52); ALBUMIN 2.8 g/dL (3.5-5.0); ALKALINE PHOSPHATASE 95 U/L (38-126); ANION GAP 10 (5-19); ASPARTATE AMINO TRANSFERASE 48 U/L (14-36); BILIRUBIN,DIRECT 0.3 mg/dL (0.0-0.4); BILIRUBIN,TOTAL 0.4 mg/dL (0.2-1.3); BLOOD UREA NITROGEN 16 mg/dL (7-20); CALCIUM 8.6 mg/dL (8.4-10.2); CARBON DIOXIDE 25 mmol/L (22-30); CHLORIDE 109 mmol/L (98-107); CREATININE RESULT 1.28 mg/dL (0.52-1.25); GLUCOSE 124 mg/dL (75-110); POTASSIUM 3.3 mmol/L (3.6-5.0); SODIUM 143.9 mmol/L (137-145); TOTAL PROTEIN 6.4 g/dL (6.3-8.2)
[2017-01-28] MEDS: DONEPEZIL HCL 5 MG TABLET PO SCH (22:03)
[2017-01-29] MEDS: DEXTROSE 5%-WATER 1000 ML 1,000 ML IV PRN ×2 (00:48→23:26)
[2017-01-29 05:44] LABS: ABSOLUTE EOSINOPHILS # (AUTO) 0.4 10^3/uL (0.0-0.6); ABSOLUTE LYMPHOCYTES (AUTO) 2.6 10^3/uL (0.5-4.7); ABSOLUTE NEUT (AUTO) 5.2 10^3/uL (1.7-8.2); BASOPHILS % (AUTO) 0.5 % (0-2); HEMATOCRIT 32.1 % (36.0-47.0); HEMOGLOBIN 10.5 g/dL (12.0-15.5); HGB HCT DIFFERENCE -0.6; LYMPHOCYTES % (AUTO) 27.9 % (13-45); MEAN CORPUSCULAR HEMOGLOBIN 30.4 pg (27.0-33.4); MEAN CORPUSCULAR HGB CONC 32.7 g/dL (32.0-36.0); MEAN CORPUSCULAR VOLUME 93 fl (80-97); MONOCYTES % (AUTO) 10.5 % (3-13); RED BLOOD COUNT 3.45 10^6/uL (3.72-5.28); SEGMENTED NEUTROPHILS % (AUTO) 57.1 % (42-78); WHITE BLOOD COUNT 9.1 10^3/uL (4.0-10.5)
[2017-01-29 05:58] LABS: ALANINE AMINOTRANSFERASE 42 U/L (9-52); ALBUMIN 3.1 g/dL (3.5-5.0); ALKALINE PHOSPHATASE 104 U/L (38-126); ANION GAP 11 (5-19); ASPARTATE AMINO TRANSFERASE 45 U/L (14-36); BILIRUBIN,DIRECT 0.3 mg/dL (0.0-0.4); BILIRUBIN,TOTAL 0.4 mg/dL (0.2-1.3); BLOOD UREA NITROGEN 15 mg/dL (7-20); CARBON DIOXIDE 28 mmol/L (22-30); CHLORIDE 107 mmol/L (98-107); CREATININE RESULT 1.33 mg/dL (0.52-1.25); GLUCOSE 112 mg/dL (75-110); POTASSIUM 3.2 mmol/L (3.6-5.0); SODIUM 145.6 mmol/L (137-145); TOTAL PROTEIN 7.1 g/dL (6.3-8.2)
[2017-01-29] MEDS: LANSOPRAZOLE 30 MG TAB.RAP.DR PO SCH (06:09)
[2017-01-29] MEDS: HEPARIN SOD (PORCINE) 5,000 UNIT/ML 1 ML SYRINGE SUBCUT SCH ×3 (06:09→22:21)
[2017-01-29] MEDS: CLONAZEPAM 1 MG TABLET PO SCH ×2 (10:50→22:36)
[2017-01-29] MEDS: DONEPEZIL HCL 5 MG TABLET PO SCH (22:36)
[2017-01-30] MEDS: HEPARIN SOD (PORCINE) 5,000 UNIT/ML 1 ML SYRINGE SUBCUT SCH ×3 (05:10→21:55)
[2017-01-30] MEDS: LANSOPRAZOLE 30 MG TAB.RAP.DR PO SCH (05:52)
[2017-01-30] MEDS: DEXTROSE 5%-WATER 1000 ML 1,000 ML IV PRN ×2 (10:24→22:57)
[2017-01-30] MEDS: CLONAZEPAM 1 MG TABLET PO SCH ×2 (10:24→21:55)
--- NOTE | 2017-01-30 13:46 | PDOC PROGRESS REPORT ---
Subjective Progress Note for:: 01/29/17 Subjective:: Patient was seen by the bedside, she is not eating, I discussed with family yesterday about the options available for this patient. There is an option of PEG tube placement versus do nothing . Physical Exam Vital Signs: Temp Pulse Resp BP Pulse Ox 98.1 F 69 17 131/56 H 99 01/30/17 12:00 01/30/17 12:00 01/30/17 12:00 01/30/17 12:00 01/30/17 12:00 Intake & Output 01/29/17 01/30/17 01/31/17 06:59 06:59 06:59 Intake Total 1570 2568 Balance 1570 2568 Weight 69.9 kg 70.1 kg General appearance: PRESENT: no acute distress Eye exam: PRESENT: PERRLA Respiratory exam: PRESENT: clear to auscultation maximo Cardiovascular exam: PRESENT: +S1, +S2 GI/Abdominal exam: PRESENT: soft Neurological exam: PRESENT: alert Results Laboratory Results: 01/29/17 05:16 01/29/17 05:16 Impressions: Chest X-Ray 01/27/17 00:00 IMPRESSION: NO ACUTE RADIOGRAPHIC FINDING IN THE CHEST. Assessment & Plan - Diagnosis (1) Hypernatremia Is this a current diagnosis for this admission?: Yes (2) Hypotension Qualifiers: Hypotension type: unspecified hypotension type Qualified Code(s): I95.9 - Hypotension, unspecified Is this a current diagnosis for this admission?: Yes (3) SIRS due to infectious process with acute organ dysfunction Is this a current diagnosis for this admission?: Yes (4) Urinary tract infection Qualifiers: Urinary tract infection type: site unspecified Hematuria presence: without hematuria Qualified Code(s): N39.0 - Urinary tract infection, site not specified Is this a current diagnosis for this admission?: Yes (5) Yeast infection of the skin Is this a current diagnosis for this admission?: Yes (6) Dementia Qualifiers: Dementia type: unspecified type Dementia behavioral disturbance: without behavioral disturbance Qualified Code(s): F03.90 - Unspecified dementia without behavioral disturbance Is this a current diagnosis for this admission?: Yes
--- NOTE | 2017-01-30 13:50 | PDOC PROGRESS REPORT ---
Subjective Progress Note for:: 01/30/17 Subjective:: I discussed with family about patient today, family decided not to have a PEG tube. Patient will be referred to hospice and she will be DNR status. I discussed with family this morning about the plan of care for the patient. Physical Exam Vital Signs: Temp Pulse Resp BP Pulse Ox 98.1 F 69 17 131/56 H 99 01/30/17 12:00 01/30/17 12:00 01/30/17 12:00 01/30/17 12:00 01/30/17 12:00 Intake & Output 01/29/17 01/30/17 01/31/17 06:59 06:59 06:59 Intake Total 1570 2568 Balance 1570 2568 Weight 69.9 kg 70.1 kg General appearance: PRESENT: no acute distress Eye exam: PRESENT: PERRLA Respiratory exam: PRESENT: clear to auscultation maximo Cardiovascular exam: PRESENT: +S1, +S2 GI/Abdominal exam: PRESENT: soft Neurological exam: PRESENT: alert Results Laboratory Results: 01/29/17 05:16 01/29/17 05:16 Impressions: Chest X-Ray 01/27/17 00:00 IMPRESSION: NO ACUTE RADIOGRAPHIC FINDING IN THE CHEST. Assessment & Plan - Diagnosis (1) Hypernatremia Is this a current diagnosis for this admission?: Yes (2) Hypotension Qualifiers: Hypotension type: unspecified hypotension type Qualified Code(s): I95.9 - Hypotension, unspecified Is this a current diagnosis for this admission?: Yes (3) SIRS due to infectious process with acute organ dysfunction Is this a current diagnosis for this admission?: Yes (4) Urinary tract infection Qualifiers: Urinary tract infection type: site unspecified Hematuria presence: without hematuria Qualified Code(s): N39.0 - Urinary tract infection, site not specified Is this a current diagnosis for this admission?: Yes (5) Yeast infection of the skin Is this a current diagnosis for this admission?: Yes (6) Dementia Qualifiers: Dementia type: unspecified type Dementia behavioral disturbance: without behavioral disturbance Qualified Code(s): F03.90 - Unspecified dementia without behavioral disturbance Is this a current diagnosis for this admission?: Yes - Plan Summary Plan Summary: Patient DNR status, hospice consultation requested
[2017-01-30] MEDS ORDERED: POTASSIUM CHLORIDE 20 MEQ/15 ML UDCUP PO ONE (14:30)
[2017-01-30] MEDS ORDERED: POTASSIUM CHLORIDE 10 MEQ TABLET.SA PO ONE (14:30)
[2017-01-30] MEDS: DONEPEZIL HCL 5 MG TABLET PO SCH (21:55)
[2017-01-31] MEDS: HEPARIN SOD (PORCINE) 5,000 UNIT/ML 1 ML SYRINGE SUBCUT SCH ×3 (05:30→21:26)
[2017-01-31] MEDS: LANSOPRAZOLE 30 MG TAB.RAP.DR PO SCH (05:30)
[2017-01-31] MEDS: DEXTROSE 5%-WATER 1000 ML 1,000 ML IV PRN ×2 (08:17→17:52)
[2017-01-31] MEDS: POTASSIUM CHLORIDE 20 MEQ/15 ML UDCUP PO SCH (09:01)
[2017-01-31] MEDS: CLONAZEPAM 1 MG TABLET PO SCH ×2 (09:12→21:26)
[2017-01-31] MEDS ORDERED: POTASSIUM CHLORIDE 10 MEQ TABLET.SA PO SCH (10:00)
[2017-01-31] MEDS: ACETAMINOPHEN 325 MG TABLET PO PRN ×2 (12:09→18:56)
--- NOTE | 2017-01-31 14:22 | PDOC PROGRESS REPORT ---
Subjective Progress Note for:: 01/31/17 Subjective:: Patient's condition is about the same, she has minimal intake, hospice consultation is requested. She will be discharged with hospice Physical Exam Vital Signs: Temp Pulse Resp BP Pulse Ox 98.2 F 63 17 136/45 H 99 01/31/17 11:54 01/31/17 11:54 01/31/17 11:54 01/31/17 11:54 01/31/17 11:54 Intake & Output 01/30/17 01/31/17 02/01/17 06:59 06:59 06:59 Intake Total 2568 2275 80 Balance 2568 2275 80 Weight 70.1 kg 68.7 kg General appearance: PRESENT: no acute distress Eye exam: PRESENT: PERRLA Respiratory exam: PRESENT: clear to auscultation maximo Cardiovascular exam: PRESENT: +S1, +S2 GI/Abdominal exam: PRESENT: soft Neurological exam: PRESENT: alert Results Laboratory Results: 01/29/17 05:16 01/29/17 05:16 Impressions: Chest X-Ray 01/27/17 00:00 IMPRESSION: NO ACUTE RADIOGRAPHIC FINDING IN THE CHEST. Assessment & Plan - Diagnosis (1) Hypernatremia Is this a current diagnosis for this admission?: Yes (2) Hypotension Qualifiers: Hypotension type: unspecified hypotension type Qualified Code(s): I95.9 - Hypotension, unspecified Is this a current diagnosis for this admission?: Yes (3) SIRS due to infectious process with acute organ dysfunction Is this a current diagnosis for this admission?: Yes (4) Urinary tract infection Qualifiers: Urinary tract infection type: site unspecified Hematuria presence: without hematuria Qualified Code(s): N39.0 - Urinary tract infection, site not specified Is this a current diagnosis for this admission?: Yes (5) Yeast infection of the skin Is this a current diagnosis for this admission?: Yes (6) Dementia Qualifiers: Dementia type: unspecified type Dementia behavioral disturbance: without behavioral disturbance Qualified Code(s): F03.90 - Unspecified dementia without behavioral disturbance Is this a current diagnosis for this admission?: Yes
[2017-01-31] MEDS: DONEPEZIL HCL 5 MG TABLET PO SCH (21:26)
[2017-02-01] MEDS: LANSOPRAZOLE 30 MG TAB.RAP.DR PO SCH (06:21)
[2017-02-01] MEDS: HEPARIN SOD (PORCINE) 5,000 UNIT/ML 1 ML SYRINGE SUBCUT SCH ×3 (06:21→23:37)
[2017-02-01] MEDS: DEXTROSE 5%-WATER 1000 ML 1,000 ML IV PRN (07:51)
[2017-02-01] MEDS: CLONAZEPAM 1 MG TABLET PO SCH ×2 (10:28→23:37)
[2017-02-01] MEDS: POTASSIUM CHLORIDE 20 MEQ/15 ML UDCUP PO SCH (10:28)
--- NOTE | 2017-02-01 20:02 | PDOC PROGRESS REPORT ---
Subjective Progress Note for:: 02/01/17 Subjective:: Patient remained demented and confused., Discharge planning working on hospice Physical Exam Vital Signs: Temp Pulse Resp BP Pulse Ox 98.4 F 64 16 123/54 L 99 02/01/17 16:47 02/01/17 18:52 02/01/17 16:47 02/01/17 16:47 02/01/17 16:47 Intake & Output 01/31/17 02/01/17 02/02/17 06:59 06:59 06:59 Intake Total 2275 2532 850 Balance 2275 2532 850 Weight 68.7 kg 68.2 kg General appearance: PRESENT: no acute distress Respiratory exam: PRESENT: clear to auscultation maximo Cardiovascular exam: PRESENT: +S1, +S2 GI/Abdominal exam: PRESENT: soft Neurological exam: PRESENT: alert Results Laboratory Results: 01/29/17 05:16 01/29/17 05:16 Impressions: Chest X-Ray 01/27/17 00:00 IMPRESSION: NO ACUTE RADIOGRAPHIC FINDING IN THE CHEST. Assessment & Plan - Diagnosis (1) Hypernatremia Is this a current diagnosis for this admission?: Yes (2) Hypotension Qualifiers: Hypotension type: unspecified hypotension type Qualified Code(s): I95.9 - Hypotension, unspecified Is this a current diagnosis for this admission?: Yes (3) SIRS due to infectious process with acute organ dysfunction Is this a current diagnosis for this admission?: Yes (4) Urinary tract infection Qualifiers: Urinary tract infection type: site unspecified Hematuria presence: without hematuria Qualified Code(s): N39.0 - Urinary tract infection, site not specified Is this a current diagnosis for this admission?: Yes (5) Yeast infection of the skin Is this a current diagnosis for this admission?: Yes (6) Dementia Qualifiers: Dementia type: unspecified type Dementia behavioral disturbance: without behavioral disturbance Qualified Code(s): F03.90 - Unspecified dementia without behavioral disturbance Is this a current diagnosis for this admission?: Yes
[2017-02-01] MEDS: DONEPEZIL HCL 5 MG TABLET PO SCH (23:37)
[2017-02-02] MEDS: LANSOPRAZOLE 30 MG TAB.RAP.DR PO SCH (05:15)
[2017-02-02] MEDS: HEPARIN SOD (PORCINE) 5,000 UNIT/ML 1 ML SYRINGE SUBCUT SCH ×3 (05:16→21:42)
[2017-02-02] MEDS: POTASSIUM CHLORIDE 20 MEQ/15 ML UDCUP PO SCH (09:24)
[2017-02-02] MEDS: CLONAZEPAM 1 MG TABLET PO SCH ×2 (09:25→22:22)
[2017-02-02] MEDS: DEXTROSE 5%-WATER 1000 ML 1,000 ML IV PRN (13:24)
--- NOTE | 2017-02-02 19:13 | PDOC PROGRESS REPORT ---
Subjective Progress Note for:: 02/02/17 Subjective:: Patient was seen by the bedside, the plan is to transfer patient to [facility] assisted living facility with hospice Physical Exam Vital Signs: Temp Pulse Resp BP Pulse Ox 98.2 F 65 18 102/75 100 02/02/17 15:02 02/02/17 15:02 02/02/17 15:02 02/02/17 15:02 02/02/17 15:02 Intake & Output 02/01/17 02/02/17 02/03/17 06:59 06:59 06:59 Intake Total 2532 2060 1400 Balance 2530 1400 Weight 68.7 kg General appearance: PRESENT: no acute distress Eye exam: PRESENT: PERRLA Respiratory exam: PRESENT: clear to auscultation maximo Cardiovascular exam: PRESENT: +S1, +S2 Results Laboratory Results: 01/29/17 05:16 01/29/17 05:16 Impressions: Chest X-Ray 01/27/17 00:00 IMPRESSION: NO ACUTE RADIOGRAPHIC FINDING IN THE CHEST. Assessment & Plan - Diagnosis (1) Hypernatremia Is this a current diagnosis for this admission?: Yes (2) Hypotension Qualifiers: Hypotension type: unspecified hypotension type Qualified Code(s): I95.9 - Hypotension, unspecified Is this a current diagnosis for this admission?: Yes (3) SIRS due to infectious process with acute organ dysfunction Is this a current diagnosis for this admission?: Yes (4) Urinary tract infection Qualifiers: Urinary tract infection type: site unspecified Hematuria presence: without hematuria Qualified Code(s): N39.0 - Urinary tract infection, site not specified Is this a current diagnosis for this admission?: Yes (5) Yeast infection of the skin Is this a current diagnosis for this admission?: Yes (6) Dementia Qualifiers: Dementia type: unspecified type Dementia behavioral disturbance: without behavioral disturbance Qualified Code(s): F03.90 - Unspecified dementia without behavioral disturbance Is this a current diagnosis for this admission?: Yes
[2017-02-02] MEDS: DONEPEZIL HCL 5 MG TABLET PO SCH (22:23)
[2017-02-03] MEDS: HEPARIN SOD (PORCINE) 5,000 UNIT/ML 1 ML SYRINGE SUBCUT SCH ×3 (05:28→21:31)
[2017-02-03] MEDS: LANSOPRAZOLE 30 MG TAB.RAP.DR PO SCH (05:57)
[2017-02-03] MEDS: CLONAZEPAM 1 MG TABLET PO SCH ×2 (11:35→21:31)
[2017-02-03] MEDS: POTASSIUM CHLORIDE 20 MEQ/15 ML UDCUP PO SCH (11:36)
--- NOTE | 2017-02-03 14:56 | PDOC TRANSFER SUMMARY ---
General - Admit/Disc Date/PCP Admission Date/Primary Care Provider: 01/22/17 20:46 PATRICIA BOGGS MD Discharge Date: 02/03/17 - Discharge Diagnosis (1) Hypernatremia Is this a current diagnosis for this admission?: Yes (2) Hypotension Is this a current diagnosis for this admission?: Yes (3) SIRS due to infectious process with acute organ dysfunction Is this a current diagnosis for this admission?: Yes (4) Urinary tract infection Is this a current diagnosis for this admission?: Yes (5) Yeast infection of the skin Is this a current diagnosis for this admission?: Yes (6) Dementia Is this a current diagnosis for this admission?: Yes - Additional Information Home Medications: Acetaminophen [Tylenol 325 mg Tablet] 650 mg PO Q4HP PRN 01/22/17 Aspirin/Dipyridamole [Aggrenox 25 mg-200 mg Capsule] 1 cap PO Q12 01/22/17 Clonazepam [Klonopin] 0.5 mg PO Q12 01/22/17 Donepezil HCl [Aricept] 10 mg PO QHS 01/22/17 Estrogens,Conjugated [Premarin Vaginal Cream (0.625 mg/gm) 30 gm] 1 gm VG DAILY 01/22/17 Guaifenesin [Siltussin SA] 200 mg PO Q4HP PRN 01/22/17 Loperamide HCl [Imodium A-D] 2 mg PO ASDIR PRN 01/22/17 Losartan Potassium [Cozaar 25 mg Tablet] 25 mg PO DAILY 01/22/17 Memantine HCl [Namenda Xr] 28 mg PO DAILY 01/22/17 Methyl Salicylate/Menth/Camph [Salonpas Patch] 2 patch TOP Q8 01/22/17 Pregabalin [Lyrica 100 mg Capsule] 100 mg PO Q8 01/22/17 History of Present Illness Admission Date/PCP: 01/22/17 20:46 PATRICIA BOGGS MD History of Present Illness: VICTOR HUGO WHATLEY is a 86 year old female, patient of Dr Boggs and resident at [facility] who was brought to ED by EMS personnel for low blood pressure and decrease responsiveness. Discussion with her primary doctor revealed poor po intake for several days and family deciding on alternative feeding route versus hospice palliative care placement. There was associated gradual generalized weakness. There was no reported associated fever or difficulty with breathing. Her initial evaluation in the ED was remarkable for significant hypotension, uremia, and concern for possible UTI. She received several liters of IV fluid normal saline and had a dose of IV Rocephin. Her comorbidities include HTN, DM type 2, advance dementia, osteoarthritis with chronic pain, history of stroke and cervical as well as lumbar spine surgeries. In view of her clinical assessment and laboratory findings, she will be admitted for further evaluation and management. Hospital Course Hospital Course: Patient she has advanced dementia, she was transferred from the senior care to the emergency room because of low blood pressure, decreased intake and poor responsiveness she was in the senior care undergoing rehabilitation after she sustained fracture of the right hip she recently underwent open reduction and internal fixation of the right hip. She had acute kidney injury associated with hypotension and also urinary tract infection. She was treated with IV antibiotic, IV fluid with normal saline. She has advanced dementia food intake was a challenge, family contemplated PEG tube placement but ultimately selected to do nothing, family stated that patient does not wish to sustain life by artificial nutrition. After consultation with family, all members of the family agreed that patient care should be transitioned to hospice care at this stage of her disease. The Plan is to transfer her back to [facility] assisted living facility with hospice Physical Exam Vital Signs: Temp Pulse Resp BP Pulse Ox 97.8 F 61 18 132/54 H 96 02/03/17 11:44 02/03/17 11:44 02/03/17 11:44 02/03/17 11:44 02/03/17 11:44 Intake & Output 02/02/17 02/03/17 02/04/17 06:59 06:59 06:59 Intake Total 0 2840 50 Balance 2059 2840 50 Weight 68.7 kg 66.1 kg General appearance: PRESENT: no acute distress Eye exam: PRESENT: PERRLA Respiratory exam: PRESENT: clear to auscultation maximo Cardiovascular exam: PRESENT: +S1, +S2 Neurological exam: PRESENT: alert Results Laboratory Results: 01/29/17 05:16 01/29/17 05:16 Impressions: Chest X-Ray 01/27/17 00:00 IMPRESSION: NO ACUTE RADIOGRAPHIC FINDING IN THE CHEST.
[2017-02-03] MEDS: ACETAMINOPHEN 325 MG TABLET PO PRN (19:50)
[2017-02-03] MEDS: DONEPEZIL HCL 5 MG TABLET PO SCH (21:31)
[2017-02-04 04:18] VITALS: BP 121/53
[2017-02-04] MEDS: HEPARIN SOD (PORCINE) 5,000 UNIT/ML 1 ML SYRINGE SUBCUT SCH (05:16)
[2017-02-04] MEDS: LANSOPRAZOLE 30 MG TAB.RAP.DR PO SCH (05:16)
== END 2017-02-04 07:53 | DRG 641 ==
LOC: ER 15:53 → UNDOADMIN 17:19 → EH 17:19 → 3S 20:15 → EH 20:15 → 3S 20:46 → EH 20:46
PROVIDERS: ADMIT Internal Medicine; ATTEND Internal Medicine
DX: E87.0 Hyperosmolality and hypernatremia (principal); N39.0 Urinary tract infection, site not specified; N17.9 Acute kidney failure, unspecified; I95.9 Hypotension, unspecified; F03.90 Unspecified dementia, unspecified severity, without behavioral disturbance, psychotic disturbance, mood disturbance, and anxiety; B37.2 Candidiasis of skin and nail; I10 Essential (primary) hypertension; E11.9 Type 2 diabetes mellitus without complications; M19.90 Unspecified osteoarthritis, unspecified site; E86.0 Dehydration; Z66 Do not resuscitate; Z78.1 Physical restraint status; Z79.82 Long term (current) use of aspirin; Z93.1 Gastrostomy status; Z86.73 Personal history of transient ischemic attack (TIA), and cerebral infarction without residual deficits; Z79.899 Other long term (current) drug therapy; Z88.6 Allergy status to analgesic agent; Z88.0 Allergy status to penicillin
CPT/HCPCS: 36415; 51701; 71010; 80048; 80053; 81001; 82803; 82962; 83605; 83690; 85025; 85027; 85610; 85730; 87040; 87086; 93005; 93010; 99291; J0696; J1644; J3490; J7030; J7040; J7060